=== PATIENT | female | born 1940 | race Caucasian/White ===

== ENCOUNTER 2016-08-18 10:09 | Emergency (ER) | payer OTHER ==
[2016-08-18 10:37] VITALS: BP 157/82; PULSE 71; TEMP 97.7; BMI 40.7
--- NOTE | 2016-08-18 12:54 | PDOC ---
History of Present Illness - General Chief Complaint: Pain, Acute Stated Complaint: LT KNEE PAIN Time Seen by Provider: 08/18/16 12:27 History Source: Patient Exam Limitations: No Limitations - History of Present Illness Initial Comments: 08/18/16 12:57 75 yr female with c/o left knee pain and wound to lower left leg. Pt states no fever no chills no trauma. Pt states she has history of Dm, DVT, high cholesterol, obesity, mostly home bound. the wound is oozing yellow honey crusted discharge. Past History - Past Medical History Allergies/Adverse Reactions: Allergies Allergy/AdvReac Type Severity Reaction Status Date / Time No Known Allergies Allergy Verified 08/18/16 10:37 Home Medications: Ambulatory Orders Calcium 250Mg/Vit-D 125 Units [Oscal 250 mg+D -] 2 each PO BID 10/13/11 Cholecalciferol (Vitamin D3) [Vitamin D3] 1,000 unit PO DAILY 10/13/11 Glimepiride [Amaryl] 2 mg PO BID 10/13/11 Levothyroxine [Synthroid -] 25 mcg PO DAILY 10/13/11 Pioglitazone HCl [Actos] 30 mg PO HS 10/13/11 Pravastatin Sodium [Pravachol -] 10 mg PO HS 10/13/11 Sitagliptin Phosphate [Januvia] 100 mg PO HS 10/13/11 Gabapentin 300 mg PO HS #10 10/17/11 Valsartan [Diovan] 160 mg PO DAILY #10 10/17/11 Aspirin [ASA -] 81 mg PO DAILY 11/15/15 Cephalexin [Keflex] 250 mg PO QID #28 capsule 08/18/16 Mupirocin Ointment [Bactroban] 1 applic TP BID #1 tube 08/18/16 Diabetes: Yes HTN: Yes Hypercholesterolemia: Yes Thyroid Disease: Yes - Surgical History Appendectomy: Yes - Immunization History Immunization Up to Date: Yes - Psycho/Social/Smoking Cessation Hx Suicidal Ideation: No Smoking Status: No Smoking History: Never smoked Have you smoked in the past 12 months: No Number of Cigarettes Smoked Daily: 0 Hx Alcohol Use: No Drug/Substance Use Hx: No Substance Use Type: None Hx Substance Use Treatment: No *Physical Exam - Vital Signs Last Vital Signs Temp Pulse Resp BP Pulse Ox 97.7 F 71 16 157/82 94 L 08/18/16 10:33 08/18/16 10:33 08/18/16 10:33 08/18/16 10:33 08/18/16 10:33 - Physical Exam General Appearance: Yes: Nourished, Appropriately Dressed, Obese HEENT: positive: EOMI, TRAVIS, Normal ENT Inspection, TMs Normal, Pharynx Normal Neck: positive: Supple Respiratory/Chest: positive: Lungs Clear, Normal Breath Sounds Cardiovascular: positive: Regular Rhythm, Regular Rate Gastrointestinal/Abdominal: positive: Normal Bowel Sounds, Soft Extremity: positive: Normal Capillary Refill, Normal Inspection, Tender (medial and laterally left knee, pain with stepping off , getting up from chair ), Swelling, Other (no crepitus no deformity , swelling noted to lateral surface of left knee ). negative: Calf Tenderness Integumentary: positive: Normal Color, Dry, Warm, Other (left lower leg with reddened area with oozing honey crust discharge, no fluctunace non pitting) Neurologic: positive: Fully Oriented, Normal Response, Motor Strength 5/5 ED Treatment Course - RADIOLOGY Radiology Studies Ordered: Category Date Time Status KNEE 3 POS-LEFT [RAD] Stat Radiology 08/18/16 12:44 Ordered DUPLEX VASCUL US-1 LEG [US] Stat Ultrasound 08/18/16 12:53 Ordered Medical Decision Making - Medical Decision Making 08/18/16 14:20 cc: left knee pain for 3 weeks getting owrse pt also has a wound to the left lower leg no fever or chills no streaking up the leg will r/o fx, r/o dvt wound culture obtained and sent will place on bactroban for possible staph / strep and keflex po pt understands to follow with PMD in 2-3 days for follow up care *DC/Admit/Observation/Transfer Diagnosis at time of Disposition: Cellulitis Qualifiers: Site of cellulitis: extremity Site of cellulitis of extremity: lower extremity Laterality: left Qualified Code(s): L03.116 - Cellulitis of left lower limb Strain of knee Qualifiers: Encounter type: initial encounter Laterality: left Qualified Code(s): S86.912A - Strain of unspecified muscle(s) and tendon(s) at lower leg level, left leg, initial encounter - Discharge Dispostion Disposition: HOME Condition at time of disposition: Good - Prescriptions Prescriptions: Mupirocin Ointment [Bactroban] 1 applic TP BID #1 tube Cephalexin [Keflex] 250 mg PO QID #28 capsule - Referrals Referrals: Yuri Alvarez MD [Primary Care Provider] - Dennis Barrera MD [Staff Physician] - - Patient Instructions Additional Instructions: Negative xray and negative duplex study of leg follow with your doctor in 2-3 days for follow up elevate the left leg apply the ointment as directed to the wound and cover with a non stick gauze take the prescribed antibiotics as directed take motrin for pain as needed follow with the orthopedist Bruce Atwood for follow up as well
== END 2016-08-18 14:32 | disposition home or self-care (01) ==
LOC: JERFT 10:09
DX: L03.116 Cellulitis of left lower limb (principal); I10 Essential (primary) hypertension; E11.9 Type 2 diabetes mellitus without complications; Z79.84 Long term (current) use of oral hypoglycemic drugs; E78.00 Pure hypercholesterolemia, unspecified; E03.9 Hypothyroidism, unspecified; E66.01 Morbid (severe) obesity due to excess calories; Z68.41 Body mass index [BMI] 40.0-44.9, adult
CPT/HCPCS: 73562-TC-LT; 87070; 87186; 87205; 93971-TC; 99281-25

== ENCOUNTER 2024-06-12 03:41 | Emergency (ER) | payer OTHER ==
[2024-06-12 03:58] VITALS: BMI 32.8
[2024-06-12 04:54] LABS: BASO % 0.1 % (0-2.0); EOS % 4.5 % (0-4.5); HEMATOCRIT 36.5 % (32.4-45.2); HEMOGLOBIN 12.2 GM/dL (10.7-15.3); LYMPH % 16.3 % (8-40); MCH 30.5 pg (25.7-33.7); MCHC 33.4 g/dl (32.0-36.0); MEAN CELL VOLUME 91.4 fl (80-96); MEAN PLT VOLUME 9.2 fl (7.5-11.1); MONO % 12.3 % (3.8-10.2); NEUT % 66.8 % (42.8-82.8); PLATELET COUNT 140 10^3/uL (134-434); RBC 3.99 M/mm3 (3.60-5.2); RDW 16.4 % (11.6-15.6); WHITE BLOOD COUNT 8.7 K/mm3 (4.0-10.0)
[2024-06-12 05:22] LABS: POTASSIUM 5.2 mmol/L (3.5-5.1)
[2024-06-12 05:24] LABS: CALCIUM 9.9 mg/dL (8.5-10.1)
[2024-06-12 05:25] LABS: ALBUMIN 3.5 g/dl (3.4-5.0); BLOOD UREA NITROGEN 58.2 mg/dL (7-18)
[2024-06-12 05:28] LABS: CREATININE 1.6 mg/dL (0.55-1.3)
[2024-06-12 05:29] LABS: BILIRUBIN,TOTAL 0.5 mg/dL (0.2-1); TOT PROT 7.1 g/dl (6.4-8.2)
[2024-06-12] MEDS: SODIUM CHLORIDE 0.9% 500 ML INFUS.BAG IV ONE (06:28)
[2024-06-12] MEDS ORDERED: ACETAMINOPHEN 500 MG TABLET (FP) ONE (09:17)
[2024-06-12] MEDS: ACETAMINOPHEN 500 MG TABLET (FP) PO ONE (09:22)
[2024-06-12] MEDS: SODIUM CHLORIDE 500 ML IV STA (09:57)
[2024-06-12 10:21] LABS: POTASSIUM 5.1 mmol/L (3.5-5.1)
[2024-06-12 10:22] LABS: BLOOD UREA NITROGEN 53.3 mg/dL (7-18); CALCIUM 9.6 mg/dL (8.5-10.1)
[2024-06-12 10:26] LABS: CREATININE 1.4 mg/dL (0.55-1.3)
[2024-06-12 11:27] VITALS: BP 121/61; PULSE 59; RESP 16; TEMP 97.9
== END 2024-06-12 11:21 | disposition home or self-care (01) ==
LOC: JER 03:41
PROC: 3E0337Z Introduction of Electrolytic and Water Balance Substance into Peripheral Vein, Percutaneous Approach (ICD-10-PCS; principal; 2024-06-12)
DX: E86.0 Dehydration (principal); R60.0 Localized edema; N17.9 Acute kidney failure, unspecified; Z20.822 Contact with and (suspected) exposure to COVID-19; W01.198A Fall on same level from slipping, tripping and stumbling with subsequent striking against other object, initial encounter
CPT/HCPCS: 0241U-QW; 36415; 70450-TC; 71045-TC-FY; 72125-TC; 72170-TC-FY; 80048; 80053; 83735; 85025; 93005; 93010; 99285-25

== ENCOUNTER 2024-11-21 14:52 | Inpatient (IN) | payer OTHER ==
[2024-11-21] MEDS: LACTATED RINGERS SOLUTION 1000 ML INFUS.BAG IV ONE (15:50)
[2024-11-21] MEDS: SODIUM CHLORIDE 0.9% 500 ML INFUS.BAG IV ONE (16:00)
[2024-11-21] MEDS ORDERED: NOREPINEPHRINE BITARTRATE/D5W 8 MG/250 ML BAG IVPB ONE (16:03)
[2024-11-21] MEDS: NOREPINEPHRINE BITARTRATE 8,000 MCG in DEXTROSE 5%-WATER - 242 ML IV STA (16:15)
[2024-11-21 16:53] LABS: BG HCT 28.0 % (32.4-45.2); VENOUS BASE EXCESS -3.4 mmol/L (-2-2); VENOUS O2 SATURATION 92.2 % (70-80); VENOUS PCO2 43.9 mmHg (38-52); VENOUS PH 7.327 (7.310-7.410)
[2024-11-21 17:05] LABS: ABSOLUTE IMMATURE GRANULOCYTES 0.04 x10^3/uL (0.0-0.031); BASOPHILS # 0.01 x10^3/uL (0.01-0.08); EOSINOPHIL % 0.5 % (0.7-5.8); EOSINOPHILS # 0.04 x10^3/uL (0.04-0.36); MCHC 30.2 g/dl (32.2-35.5); MEAN CELL VOLUME 92.6 fl (79.4-94.8); MEAN PLT VOLUME 11.2 fl (9.4-12.3); MONOCYTE # 0.54 x10^3/uL (0.24-0.86); MONOCYTE % 7.0 % (4.7-12.5); RDW 21.3 % (12.5-17.0)
[2024-11-21 17:13] LABS: INR 1.82 (0.83-1.09); PROTHROMBIN TIME (PATIENT) 20.0 SEC (9.7-13.0)
[2024-11-21 17:16] LABS: ACTIVATED PTT 73.0 SECONDS (25.2-36.5)
[2024-11-21 17:37] LABS: CO2 24 mmol/L (21-32); GLUCOSE,RANDOM 101 mg/dL (74-106)
[2024-11-21 17:39] LABS: SGOT/AST 36 U/L (15-37); SGPT/ALT 28 U/L (13-61)
[2024-11-21 17:41] LABS: CREATININE 2.2 mg/dL (0.55-1.3); TOT PROT 5.3 g/dl (6.4-8.2)
[2024-11-21 17:41] LABS: LACTIC ACID 3.5 mmol/L (0.4-2.0)
[2024-11-21 17:42] LABS: ALK PHOS 126 U/L (45-117)
[2024-11-21] MEDS ORDERED: VANCOMYCIN/WATER 1250 MG 1,250 MG/250 ML BAG IVPB ONE (17:43)
[2024-11-21 17:44] LABS: N-TERMINAL BNP 4773.4 pg/ml (5-450)
[2024-11-21] MEDS: PIPERACILLIN/TAZOB 2.25 GM 2.25 GM in DEXTROSE 5%-WATER - 50 ML IVPB ONE (18:00)
[2024-11-21] MEDS: VANCOMYCIN/WATER 1250 MG 1,250 MG/250 ML BAG IVPB ONE (18:00)
[2024-11-21] MEDS: SODIUM CHLORIDE 1,000 ML IV STA (18:41)
[2024-11-21] MEDS: KCL 10 MEQ IVPB 10 MEQ/100 ML INFUS.BAG IVPB SCH (18:45)
[2024-11-21] MEDS ORDERED: MAGNESIUM SULFATE IN WATER 2 GM/50 ML IVPB IVPB ONE (18:52)
[2024-11-21] MEDS ORDERED: KCL 10 MEQ IVPB 10 MEQ/100 ML INFUS.BAG IVPB ONE (18:53)
[2024-11-21] MEDS: MAGNESIUM SULFATE IN WATER 2 GM/50 ML IVPB IVPB ONE (19:26)
[2024-11-21] MEDS ORDERED: PHENYLEPHRINE HCL 10 MG/1 ML SINGLE DOSE VIAL ONE (21:13)
[2024-11-21] MEDS ORDERED: LEVOTHYROXINE SODIUM 100 MCG 5 ML VIAL IVPUSH ONE (21:34)
[2024-11-21] MEDS ORDERED: HEPARIN NA (PORCINE) 5,000 UNITS/ML 1ML VIAL SQ SCH (22:00)
[2024-11-21] MEDS: MUPIROCIN 2% TOPICAL OINTMENT FOR DECOLONIZATION NS SCH (22:50)
[2024-11-21] MEDS: FUROSEMIDE 40 MG/4 ML INJECTABLE VIAL IVPUSH ONE (22:50)
[2024-11-21] MEDS: ATORVASTATIN CA 10 MG TABLET (FP) PO SCH (22:50)
[2024-11-21] MEDS: CHLORHEXIDINE GLUCONATE 4% CLEANSER FOR DECOLONIZATION TP SCH (22:50)
[2024-11-21] MEDS: ACETAMINOPHEN 500 MG TABLET (FP) PO SCH (22:50)
[2024-11-21] MEDS: DABIGATRAN ETEXILATE MESYLATE 75 MG CAPSULE PO SCH (22:50)
[2024-11-21] MEDS: SODIUM CHLORIDE 500 ML IV STA (22:51)
[2024-11-21] MEDS: PHENYLEPHRINE HCL 10 MG/1 ML SINGLE DOSE VIAL IVPB ONE (22:54)
[2024-11-21] MEDS: NOREPINEPHRINE BITARTRATE/D5W 8 MG/250 ML BAG IVPB STA (23:42)
[2024-11-22] MEDS: LACTATED RINGERS SOLUTION 1000 ML INFUS.BAG IV ONE (00:29)
[2024-11-22 00:34] LABS: LACTIC ACID 2.3 mmol/L (0.4-2.0)
[2024-11-22] MEDS: HYDROCORTISONE SOD SUCCINATE 100 MG/2 ML VIAL IVPUSH SCH ×2 (01:05→13:59)
[2024-11-22] MEDS: PIPERACILLIN/TAZOB 2.25 GM 2.25 GM/50 ML BAG IVPB SCH (02:05)
[2024-11-22] MEDS: INSULIN ASPART SLIDING SCALE (NOVOLOG) 1 VIAL SQ SCH (06:19)
[2024-11-22] MEDS: LEVOTHYROXINE NA 75 MCG TABLET (FP) PO SCH (06:20)
[2024-11-22 06:37] LABS: MCHC 30.2 g/dl (32.2-35.5); MEAN CELL VOLUME 90.9 fl (79.4-94.8); MEAN PLT VOLUME 11.3 fl (9.4-12.3); RDW 21.4 % (12.5-17.0)
[2024-11-22 06:56] LABS: CO2 24.0 mmol/L (21-32); GLUCOSE,RANDOM 168.0 mg/dL (74-106)
[2024-11-22 06:58] LABS: CREATININE 2.3 mg/dL (0.55-1.3); SGOT/AST 36.0 U/L (15-37); SGPT/ALT 30.0 U/L (13-61)
[2024-11-22 07:00] LABS: ALK PHOS 134.0 U/L (45-117); TOT PROT 5.9 g/dl (6.4-8.2)
[2024-11-22 07:01] LABS: LACTIC ACID 2.1 mmol/L (0.4-2.0)
[2024-11-22] MEDS: MAGNESIUM SULFATE IN WATER 2 GM/50 ML IVPB IVPB ONE (08:07)
[2024-11-22] MEDS ORDERED: DEXTROSE 50%-WATER 25 GM/50 ML DISP.SYRIN ONE (09:02)
[2024-11-22 09:37] LABS: LACTIC ACID 2.2 mmol/L (0.4-2.0)
[2024-11-22] MEDS: NOREPINEPHRINE BITARTRATE/D5W 8 MG/250 ML BAG IVPB SCH (09:47)
[2024-11-22] MEDS: LACTATED RINGERS SOLUTION 1,000 ML/1,000 ML INFUS.BAG IV SCH (10:17)
[2024-11-22 10:19] LABS: ARTERIAL BLD GAS O2 SATURATION 98.8 % (95-98); ARTERIAL BLOOD GAS BASE EXCESS -5.3 mmol/L (-2-2); ARTERIAL BLOOD GAS PCO2 37.40 mmHg (35-45); ARTERIAL BLOOD GAS PO2 147.0 mmHg (80-100); BG HCT 28.0 % (32.4-45.2); O2 CONTENT 1.36 % vol
[2024-11-22] MEDS: VANCOMYCIN 1 GM PREMIX (F) 1 GM/200 ML BAG IVPB SCH (17:47)
[2024-11-22 20:44] LABS: EPI CELLS >36 /uL (0-25.1); HYALINE CASTS 3 /uL (0-3.1); URINE APPEARANCE TURBID; URINE BACTERIA 378 /uL (0-1359); URINE BILIRUBIN NEGATIVE (NEGATIVE); URINE COLOR YELLOW; URINE GLUCOSE (UA) NEGATIVE (NEGATIVE); URINE KETONE NEGATIVE (NEGATIVE); URINE LEUK ESTERASE 3+ (NEGATIVE); URINE NITRITE NEGATIVE (NEGATIVE); URINE PROTEIN 3+ (NEGATIVE); URINE UROBILINOGEN 0.2 mg/dL (0.2-1.0); URINE WBC 16619 /uL (0-25.8)
[2024-11-22] MEDS: ZINC OXIDE/PETROLATUM,WHITE 1 APPLIC OINT...G. TP SCH (21:33)
[2024-11-23 06:42] LABS: MCHC 30.3 g/dl (32.2-35.5); MEAN CELL VOLUME 90.6 fl (79.4-94.8); MEAN PLT VOLUME 11.0 fl (9.4-12.3); RDW 21.3 % (12.5-17.0)
[2024-11-23 07:04] LABS: ALK PHOS 117.0 U/L (45-117); CO2 23.0 mmol/L (21-32); CREATININE 2.8 mg/dL (0.55-1.3); GLUCOSE,RANDOM 189.0 mg/dL (74-106); SGOT/AST 26.0 U/L (15-37); SGPT/ALT 25.0 U/L (13-61); TOT PROT 5.4 g/dl (6.4-8.2)
[2024-11-23 07:20] LABS: URINE RBC 914.7 /uL (0-23.9); YEAST FEW (NEGATIVE)
[2024-11-23] MEDS ORDERED: APIXABAN 2.5 MG TABLET PO ONE (10:50)
[2024-11-23] MEDS: APIXABAN 2.5 MG TABLET NGT ONE (10:56)
[2024-11-23] MEDS: PIPERACILLIN/TAZOB 2.25 GM 2.25 GM/50 ML BAG IVPB SCH (17:01)
[2024-11-23] MEDS: PIPERACILLIN/TAZOB 2.25 GM 2.25 GM in DEXTROSE 5%-WATER - 50 ML IVPB SCH (17:33)
[2024-11-23] MEDS: DABIGATRAN ETEXILATE MESYLATE 75 MG CAPSULE PO SCH (21:16)
[2024-11-23] MEDS: ACETAMINOPHEN 650 MG/20.3 ML ORAL SOLUTION (CUPS) NGT SCH (21:20)
[2024-11-23] MEDS: HYDROCORTISONE SOD SUCCINATE 100 MG/2 ML VIAL IVPUSH SCH (21:20)
[2024-11-23] MEDS: ATORVASTATIN CA 10 MG TABLET (FP) NGT SCH (21:21)
[2024-11-23] MEDS ORDERED: APIXABAN 2.5 MG TABLET NGT SCH (22:00)
[2024-11-23] MEDS ORDERED: HYDROCORTISONE SOD SUCCINATE 100 MG/2 ML VIAL IVPUSH SCH (22:00)
[2024-11-24] MEDS ORDERED: PIPERACILLIN/TAZOB 2.25 GM 2.25 GM/50 ML BAG IVPB SCH (02:00)
[2024-11-24] MEDS ORDERED: FUROSEMIDE 40 MG/4 ML INJECTABLE VIAL ONE (05:45)
[2024-11-24 06:42] LABS: ABSOLUTE IMMATURE GRANULOCYTES 0.07 x10^3/uL (0.0-0.031); BASOPHILS # 0.01 x10^3/uL (0.01-0.08); EOSINOPHIL % 0.0 % (0.7-5.8); EOSINOPHILS # 0.00 x10^3/uL (0.04-0.36); MCHC 30.4 g/dl (32.2-35.5); MEAN CELL VOLUME 91.1 fl (79.4-94.8); MONOCYTE # 0.48 x10^3/uL (0.24-0.86); MONOCYTE % 5.0 % (4.7-12.5); RDW 21.6 % (12.5-17.0)
[2024-11-24] MEDS: LEVOTHYROXINE NA 75 MCG TABLET (FP) PO SCH (06:43)
[2024-11-24] MEDS ORDERED: LEVOTHYROXINE NA 75 MCG TABLET (FP) NGT SCH (07:00)
[2024-11-24 07:05] LABS: CO2 25.0 mmol/L (21-32); GLUCOSE,RANDOM 189.0 mg/dL (74-106)
[2024-11-24 07:07] LABS: SGPT/ALT 25.0 U/L (13-61)
[2024-11-24 07:08] LABS: CREATININE 3.0 mg/dL (0.55-1.3); SGOT/AST 19.0 U/L (15-37)
[2024-11-24 07:09] LABS: TOT PROT 5.6 g/dl (6.4-8.2)
[2024-11-24 07:10] LABS: ALK PHOS 106.0 U/L (45-117)
[2024-11-24] MEDS: POTASSIUM CHLORIDE ORAL LIQUID 20 MEQ/15 ML PO ONE (08:33)
[2024-11-24] MEDS: SODIUM CHLORIDE 1,000 ML IV STA (17:39)
[2024-11-24] MEDS ORDERED: VANCOMYCIN 1 GM PREMIX (F) 1 GM/200 ML BAG IVPB SCH (18:00)
[2024-11-24 19:48] LABS: ABSOLUTE IMMATURE GRANULOCYTES 0.05 x10^3/uL (0.0-0.031)
[2024-11-24 19:49] LABS: BASOPHILS # 0.00 x10^3/uL (0.01-0.08); EOSINOPHIL % 0.0 % (0.7-5.8); EOSINOPHILS # 0.00 x10^3/uL (0.04-0.36); IMMATURE PLATELET FRACTION # 8.00 x10^3/uL; MCHC 30.2 g/dl (32.2-35.5); MEAN CELL VOLUME 90.6 fl (79.4-94.8); MEAN PLT VOLUME 11.2 fl (9.4-12.3); MONOCYTE # 0.57 x10^3/uL (0.24-0.86); MONOCYTE % 5.6 % (4.7-12.5); RDW 21.5 % (12.5-17.0)
[2024-11-24 20:08] LABS: CO2 21.0 mmol/L (21-32); GLUCOSE,RANDOM 179.0 mg/dL (74-106)
[2024-11-24 20:11] LABS: CREATININE 3.1 mg/dL (0.55-1.3); SGOT/AST 24.0 U/L (15-37); SGPT/ALT 25.0 U/L (13-61)
[2024-11-24 20:13] LABS: TOT PROT 5.4 g/dl (6.4-8.2)
[2024-11-24 20:14] LABS: ALK PHOS 101.0 U/L (45-117)
[2024-11-24 20:29] LABS: LACTIC ACID 2.6 mmol/L (0.4-2.0)
[2024-11-24 22:36] LABS: LACTIC ACID 2.2 mmol/L (0.4-2.0)
[2024-11-25 06:26] LABS: ABSOLUTE IMMATURE GRANULOCYTES 0.04 x10^3/uL (0.0-0.031); BASOPHILS # 0.01 x10^3/uL (0.01-0.08); EOSINOPHIL % 0.7 % (0.7-5.8); EOSINOPHILS # 0.07 x10^3/uL (0.04-0.36); MCHC 30.9 g/dl (32.2-35.5); MEAN CELL VOLUME 89.8 fl (79.4-94.8); MEAN PLT VOLUME 11.4 fl (9.4-12.3); MONOCYTE # 0.91 x10^3/uL (0.24-0.86); MONOCYTE % 8.9 % (4.7-12.5); RDW 21.8 % (12.5-17.0)
[2024-11-25 07:21] LABS: ALK PHOS 104.0 U/L (45-117); CO2 22.0 mmol/L (21-32); CREATININE 3.3 mg/dL (0.55-1.3); GLUCOSE,RANDOM 124.0 mg/dL (74-106); SGOT/AST 20.0 U/L (15-37); SGPT/ALT 24.0 U/L (13-61); TOT PROT 5.4 g/dl (6.4-8.2)
[2024-11-25] MEDS: HYDROCORTISONE SOD SUCCINATE 100 MG/2 ML VIAL IVPUSH SCH (11:45)
[2024-11-25] MEDS ORDERED: POTASSIUM CHLORIDE 10 MEQ in DEXTROSE 5%-WATER - 1,000 ML IV SCH (16:00)
[2024-11-25] MEDS: POTASSIUM CHLORIDE 10 MEQ in AMINO ACIDS 4.25%/D5W 1,000 ML IV SCH (17:33)
[2024-11-25] MEDS: AMINO ACIDS 4.25%/D5W 1,000 ML IV SCH (18:17)
[2024-11-26 08:17] LABS: MCHC 30.2 g/dl (32.2-35.5)
[2024-11-26 08:19] LABS: IMMATURE PLATELET FRACTION # 8.80 x10^3/uL; MEAN CELL VOLUME 90.6 fl (79.4-94.8); MEAN PLT VOLUME 11.1 fl (9.4-12.3); RDW 21.8 % (12.5-17.0)
[2024-11-26 09:16] LABS: CO2 23.0 mmol/L (21-32); GLUCOSE,RANDOM 195.0 mg/dL (74-106)
[2024-11-26 09:19] LABS: CREATININE 3.2 mg/dL (0.55-1.3); SGOT/AST 20.0 U/L (15-37); SGPT/ALT 23.0 U/L (13-61)
[2024-11-26 09:20] LABS: TOT PROT 5.4 g/dl (6.4-8.2)
[2024-11-26 09:21] LABS: ALK PHOS 99.0 U/L (45-117)
[2024-11-26] MEDS: MIDODRINE HCL 5 MG TABLET PO SCH (10:24)
[2024-11-26] MEDS: SODIUM CHLORIDE 1,000 ML IV SCH (16:32)
[2024-11-27 07:39] LABS: EOSINOPHIL % 1.8 % (0.7-5.8); EOSINOPHILS # 0.17 x10^3/uL (0.04-0.36)
[2024-11-27 07:41] LABS: ABSOLUTE IMMATURE GRANULOCYTES 0.40 x10^3/uL (0.0-0.031); BASOPHILS # 0.02 x10^3/uL (0.01-0.08); IMMATURE PLATELET FRACTION # 8.20 x10^3/uL; MCHC 30.8 g/dl (32.2-35.5); MEAN CELL VOLUME 89.1 fl (79.4-94.8); MEAN PLT VOLUME 11.2 fl (9.4-12.3); MONOCYTE # 1.17 x10^3/uL (0.24-0.86); MONOCYTE % 12.5 % (4.7-12.5); RDW 21.6 % (12.5-17.0)
[2024-11-27 07:58] LABS: CO2 22.0 mmol/L (21-32); GLUCOSE,RANDOM 167.0 mg/dL (74-106)
[2024-11-27 08:01] LABS: CREATININE 2.7 mg/dL (0.55-1.3); SGOT/AST 16.0 U/L (15-37); SGPT/ALT 19.0 U/L (13-61)
[2024-11-27 08:03] LABS: TOT PROT 5.5 g/dl (6.4-8.2)
[2024-11-27 08:04] LABS: ALK PHOS 94.0 U/L (45-117)
[2024-11-27] MEDS: POTASSIUM CHLORIDE ORAL LIQUID 20 MEQ/15 ML PO ONE (09:45)
[2024-11-27] MEDS: MAGNESIUM 1GM/D5W - 1 GM/100 ML IVPB IVPB ONE (09:45)
[2024-11-27] MEDS: SODIUM CHLORIDE 1,000 ML IV SCH (20:15)
[2024-11-27] MEDS: ACETAMINOPHEN 650 MG/20.3 ML ORAL SOLUTION (CUPS) NGT SCH (21:31)
[2024-11-27] MEDS: DABIGATRAN ETEXILATE MESYLATE 75 MG CAPSULE PO SCH (21:32)
[2024-11-27] MEDS: ATORVASTATIN CA 10 MG TABLET (FP) NGT SCH (21:32)
[2024-11-27] MEDS: ZINC OXIDE/PETROLATUM,WHITE 1 APPLIC OINT...G. TP SCH (21:33)
[2024-11-27] MEDS: INSULIN ASPART SLIDING SCALE (NOVOLOG) 1 VIAL SQ SCH (23:35)
[2024-11-28] MEDS: PIPERACILLIN/TAZOB 2.25 GM 2.25 GM in DEXTROSE 5%-WATER - 50 ML IVPB SCH (01:17)
[2024-11-28] MEDS: LEVOTHYROXINE NA 75 MCG TABLET (FP) PO SCH (06:07)
[2024-11-28] MEDS ORDERED: INSULIN ASPART SLIDING SCALE (NOVOLOG) 1 VIAL SQ ONE (06:23)
[2024-11-28] MEDS: POTASSIUM CHLORIDE 10 MEQ in AMINO ACIDS 4.25%/D5W 1,000 ML IV SCH ×2 (06:55→14:27)
[2024-11-28 08:32] LABS: BASOPHILS # 0.02 x10^3/uL (0.01-0.08); EOSINOPHIL % 3.5 % (0.7-5.8)
[2024-11-28 08:34] LABS: ABSOLUTE IMMATURE GRANULOCYTES 0.18 x10^3/uL (0.0-0.031); EOSINOPHILS # 0.32 x10^3/uL (0.04-0.36); IMMATURE PLATELET FRACTION # 9.30 x10^3/uL; MCHC 30.2 g/dl (32.2-35.5); MEAN CELL VOLUME 89.5 fl (79.4-94.8); MEAN PLT VOLUME 11.1 fl (9.4-12.3); MONOCYTE # 0.98 x10^3/uL (0.24-0.86); MONOCYTE % 10.7 % (4.7-12.5); RDW 21.5 % (12.5-17.0)
[2024-11-28] MEDS: MIDODRINE HCL 5 MG TABLET PO SCH (10:10)
[2024-11-28 10:51] LABS: ALK PHOS 101.0 U/L (45-117); CO2 21.0 mmol/L (21-32); CREATININE 2.4 mg/dL (0.55-1.3); GLUCOSE,RANDOM 174.0 mg/dL (74-106); SGOT/AST 17.0 U/L (15-37); SGPT/ALT 20.0 U/L (13-61); TOT PROT 5.7 g/dl (6.4-8.2)
[2024-11-28] MEDS: MAGNESIUM 2GM/50ML STERILE WATER IVPB IVPB ONE (14:27)
[2024-11-28] MEDS: KCL 10 MEQ IVPB 10 MEQ/100 ML INFUS.BAG IVPB SCH ×2 (14:35→16:02)
[2024-11-28 22:32] VITALS: BMI 36.6
[2024-11-29] MEDS: ASCORBIC ACID 500 MG TABLET (FP) PO SCH (10:46)
[2024-11-29] MEDS: MULTIVITAMINS (DAILY MVI) TABLET (FP) PO SCH (10:46)
[2024-11-30 10:16] LABS: GLUCOSE,RANDOM 180.0 mg/dL (74-106)
[2024-11-30 10:21] LABS: CO2 21.0 mmol/L (21-32)
[2024-11-30 10:51] LABS: ALK PHOS 107.0 U/L (45-117); CREATININE 1.8 mg/dL (0.55-1.3); SGOT/AST 17.0 U/L (15-37); SGPT/ALT 20.0 U/L (13-61); TOT PROT 5.9 g/dl (6.4-8.2)
[2024-11-30] MEDS: POTASSIUM CHLORIDE ORAL LIQUID 20 MEQ/15 ML PO ONE (11:35)
[2024-11-30 11:52] VITALS: BP 103/92; PULSE 71; RESP 16; TEMP 97.9
== END 2024-11-30 12:24 | DRG 871 ==
LOC: JER 14:52 → JERBED 17:29 → JICU 19:21 → J4W 11-24 16:13 → J6S 11-27 17:52
PROVIDERS: ADMIT Internal Medicine Pulmonary Disease; ATTEND Family Medicine
PROC: 4A133B1 Monitoring of Arterial Pressure, Peripheral, Percutaneous Approach (ICD-10-PCS; principal; 2024-11-21)
PROC: 4A133J1 Monitoring of Arterial Pulse, Peripheral, Percutaneous Approach (ICD-10-PCS; 2024-11-21)
PROC: 05HM33Z Insertion of Infusion Device into Right Internal Jugular Vein, Percutaneous Approach (ICD-10-PCS; 2024-11-21)
PROC: B543ZZA Ultrasonography of Right Jugular Veins, Guidance (ICD-10-PCS; 2024-11-21)
DX: A41.9 Sepsis, unspecified organism (principal); I50.23 Acute on chronic systolic (congestive) heart failure; R65.21 Severe sepsis with septic shock; J69.0 Pneumonitis due to inhalation of food and vomit; I42.9 Cardiomyopathy, unspecified; N39.0 Urinary tract infection, site not specified; J98.11 Atelectasis; I13.0 Hypertensive heart and chronic kidney disease with heart failure and stage 1 through stage 4 chronic kidney disease, or unspecified chronic kidney disease; E27.40 Unspecified adrenocortical insufficiency; N17.9 Acute kidney failure, unspecified; I48.91 Unspecified atrial fibrillation; E87.6 Hypokalemia; E83.42 Hypomagnesemia; E11.9 Type 2 diabetes mellitus without complications; N18.9 Chronic kidney disease, unspecified; E03.9 Hypothyroidism, unspecified; T68.XXXA Hypothermia, initial encounter; X58.XXXA Exposure to other specified factors, initial encounter; Y93.9 Activity, unspecified; Y92.89 Other specified places as the place of occurrence of the external cause; Y99.9 Unspecified external cause status
CPT/HCPCS: 0241U-QW; 36415; 36600; 70450-TC; 71045-TC-FY; 76775-TC; 80053; 81003; 82024; 82533; 82550; 82803; 82962; 83605; 83735; 83880; 84100; 84439; 84443; 84484; 85025; 85027; 85610; 85730; 86850; 86900; 86901; 87040; 87077; 87086; 87481; 87635; 87899; 93005; 93010; 93306-TC; 99291; J3490

== ENCOUNTER 2024-12-06 02:23 | Inpatient (IN) | payer OTHER ==
[2024-12-06 02:59] LABS: MCHC 29.1 g/dl (32.2-35.5); MEAN CELL VOLUME 93.1 fl (79.4-94.8); MEAN PLT VOLUME 11.0 fl (9.4-12.3); RDW 24.1 % (12.5-17.0)
[2024-12-06 03:00] LABS: BG HCT 26.0 % (32.4-45.2); VENOUS BASE EXCESS -3.4 mmol/L (-2-2); VENOUS O2 SATURATION 62.5 % (70-80); VENOUS PCO2 65.7 mmHg (38-52)
[2024-12-06 03:11] LABS: INR 2.54 (0.83-1.09); PROTHROMBIN TIME (PATIENT) 27.9 SEC (9.7-13.0)
[2024-12-06 03:46] LABS: VENOUS PH 7.199 (7.310-7.410)
[2024-12-06 03:55] LABS: CO2 23.0 mmol/L (21-32); GLUCOSE,RANDOM 128.0 mg/dL (74-106)
[2024-12-06 03:58] LABS: CREATININE 1.8 mg/dL (0.55-1.3); SGOT/AST 37.0 U/L (15-37); SGPT/ALT 33.0 U/L (13-61)
[2024-12-06 04:00] LABS: TOT PROT 6.0 g/dl (6.4-8.2)
[2024-12-06] MEDS ORDERED: PIPERACILLIN/TAZOB 4.5 GM 4.5 GM/100 ML BAG IVPB ONE (04:00)
[2024-12-06] MEDS: PIPERACILLIN/TAZOB 4.5 GM 4.5 GM in DEXTROSE 5%-WATER 100 ML IVPB ONE (04:08)
[2024-12-06] MEDS: SODIUM CHLORIDE 0.9% 500 ML INFUS.BAG IV ONE ×2 (04:08→06:46)
[2024-12-06 04:15] LABS: ALK PHOS 138.0 U/L (45-117)
[2024-12-06 04:19] LABS: ACTIVATED PTT 142.8 SECONDS (25.2-36.5)
[2024-12-06 05:04] LABS: URINE APPEARANCE TURBID; URINE BILIRUBIN LARGE (NEGATIVE); URINE COLOR PINK; URINE GLUCOSE (UA) NEGATIVE (NEGATIVE); URINE KETONE NEGATIVE (NEGATIVE)
[2024-12-06 05:05] LABS: URINE LEUK ESTERASE LARGE (NEGATIVE); URINE NITRITE POSITIVE (NEGATIVE); URINE PROTEIN 300 (NEGATIVE); URINE RBC 239.3 /uL (0-23.9); URINE UROBILINOGEN 0.2 mg/dL (0.2-1.0)
[2024-12-06 05:06] LABS: EPI CELLS 165.6 /uL (0-25.1); HYALINE CASTS 13.56 /uL (0-3.1); URINE BACTERIA 0.0 /uL (0-1359); URINE WBC 36.3 /uL (0-25.8)
[2024-12-06] MEDS: VANCOMYCIN HCL 1,500 MG in DEXTROSE 5%-WATER - 500 ML IVPB ONE (05:39)
[2024-12-06 06:19] LABS: URINE CRYSTALS NONE SEEN /hpf
[2024-12-06 07:19] LABS: HIV INTERPRETATION NEGATIVE (NEGATIVE)
[2024-12-06] MEDS ORDERED: HYDROCORTISONE SOD SUCCINATE 100 MG/2 ML VIAL ONE (07:42)
[2024-12-06] MEDS: HYDROCORTISONE SOD SUCCINATE 100 MG/2 ML VIAL IVPUSH ONE (07:49)
[2024-12-06] MEDS ORDERED: NOREPINEPHRINE BITARTRATE 16,000 MCG in SODIUM CHLORIDE 484 ML IV SCH (09:45)
[2024-12-06] MEDS: NOREPINEPHRINE BITARTRATE/D5W 8 MG/250 ML BAG IVPB SCH (10:25)
[2024-12-06 12:38] LABS: ARTERIAL BLD GAS O2 SATURATION 98.8 % (95-98); ARTERIAL BLOOD GAS BASE EXCESS -7.4 mmol/L (-2-2); ARTERIAL BLOOD GAS PCO2 55.90 mmHg (35-45); ARTERIAL BLOOD GAS PO2 176.5 mmHg (80-100); BG HCT 26.0 % (32.4-45.2)
[2024-12-06 12:41] LABS: ALLENS TEST POSITIVE
[2024-12-06] MEDS ORDERED: PIPERACILLIN/TAZOB 3.375 GM 3.375 GM in DEXTROSE 5%-WATER - 50 ML IVPB SCH ×2 (13:15→14:00)
[2024-12-06] MEDS: LACTATED RINGERS SOLUTION 1,000 ML/1,000 ML INFUS.BAG IV SCH (13:27)
[2024-12-06] MEDS: PIPERACILLIN/TAZOB 3.375 GM 3.375 GM in DEXTROSE 5%-WATER - 50 ML IVPB SCH (14:24)
[2024-12-06] MEDS: MUPIROCIN 2% TOPICAL OINTMENT FOR DECOLONIZATION NS SCH (15:53)
[2024-12-06 16:15] LABS: ARTERIAL BLD GAS O2 SATURATION 98.3 % (95-98); ARTERIAL BLOOD GAS BASE EXCESS -8.9 mmol/L (-2-2); ARTERIAL BLOOD GAS PCO2 46.10 mmHg (35-45); ARTERIAL BLOOD GAS PO2 142.8 mmHg (80-100); BG HCT 25.0 % (32.4-45.2)
[2024-12-06 16:16] LABS: ALLENS TEST POSITIVE
[2024-12-06 16:17] LABS: VENT MODE IPAP 14; VENT RATE 14
[2024-12-06 18:22] LABS: MCHC 28.8 g/dl (32.2-35.5); MEAN CELL VOLUME 94.5 fl (79.4-94.8); MEAN PLT VOLUME 11.6 fl (9.4-12.3); RDW 24.6 % (12.5-17.0)
[2024-12-06 18:40] LABS: CO2 23.0 mmol/L (21-32); GLUCOSE,RANDOM 178.0 mg/dL (74-106)
[2024-12-06 18:43] LABS: CREATININE 1.9 mg/dL (0.55-1.3); SGPT/ALT 31.0 U/L (13-61)
[2024-12-06 18:45] LABS: SGOT/AST 29.0 U/L (15-37); TOT PROT 6.4 g/dl (6.4-8.2)
[2024-12-06 18:46] LABS: ALK PHOS 128.0 U/L (45-117)
[2024-12-06] MEDS: MAGNESIUM 2GM/50ML STERILE WATER IVPB IVPB ONE (19:00)
[2024-12-06] MEDS: FUROSEMIDE 40 MG/4 ML INJECTABLE VIAL IVPUSH ONE ×2 (21:33→23:23)
[2024-12-06] MEDS: PIPERACILLIN/TAZOB 2.25 GM 2.25 GM in DEXTROSE 5%-WATER - 50 ML IVPB SCH (21:33)
[2024-12-06 22:18] LABS: ARTERIAL BLD GAS O2 SATURATION 98.6 % (95-98); ARTERIAL BLOOD GAS BASE EXCESS -8.9 mmol/L (-2-2); ARTERIAL BLOOD GAS PCO2 45.40 mmHg (35-45); ARTERIAL BLOOD GAS PO2 154.2 mmHg (80-100); BG HCT 25.0 % (32.4-45.2)
[2024-12-06] MEDS: CHLORHEXIDINE GLUCONATE 4% CLEANSER FOR DECOLONIZATION TP SCH (23:19)
[2024-12-07 06:25] LABS: ARTERIAL BLD GAS O2 SATURATION 99.0 % (95-98); ARTERIAL BLOOD GAS BASE EXCESS -6.9 mmol/L (-2-2); ARTERIAL BLOOD GAS PCO2 50.70 mmHg (35-45); ARTERIAL BLOOD GAS PO2 188.9 mmHg (80-100); BG HCT 31.0 % (32.4-45.2); O2 CONTENT 1.49 % vol
[2024-12-07 06:48] LABS: ABSOLUTE IMMATURE GRANULOCYTES 0.13 x10^3/uL (0.0-0.031); BASOPHILS # 0.03 x10^3/uL (0.01-0.08); EOSINOPHIL % 0.2 % (0.7-5.8); EOSINOPHILS # 0.03 x10^3/uL (0.04-0.36); MCHC 29.2 g/dl (32.2-35.5); MEAN CELL VOLUME 93.1 fl (79.4-94.8); MEAN PLT VOLUME 11.5 fl (9.4-12.3); MONOCYTE # 1.35 x10^3/uL (0.24-0.86); MONOCYTE % 10.6 % (4.7-12.5); RDW 24.1 % (12.5-17.0)
[2024-12-07 08:32] LABS: ALK PHOS 127.0 U/L (45-117); CO2 19.0 mmol/L (21-32); CREATININE 1.9 mg/dL (0.55-1.3); GLUCOSE,RANDOM 204.0 mg/dL (74-106); SGOT/AST 28.0 U/L (15-37); SGPT/ALT 31.0 U/L (13-61); TOT PROT 5.8 g/dl (6.4-8.2)
[2024-12-07 12:20] LABS: ARTERIAL BLD GAS O2 SATURATION 98.8 % (95-98); ARTERIAL BLOOD GAS BASE EXCESS -3.8 mmol/L (-2-2); ARTERIAL BLOOD GAS PCO2 53.20 mmHg (35-45); ARTERIAL BLOOD GAS PO2 165.1 mmHg (80-100); BG HCT 20.0 % (32.4-45.2); O2 CONTENT 0.97 % vol
[2024-12-07 12:23] LABS: VENT MODE S/T; VENT RATE 20
[2024-12-07 18:13] LABS: ARTERIAL BLD GAS O2 SATURATION 98.6 % (95-98); ARTERIAL BLOOD GAS BASE EXCESS -6.3 mmol/L (-2-2); ARTERIAL BLOOD GAS PCO2 44.90 mmHg (35-45); ARTERIAL BLOOD GAS PO2 148.4 mmHg (80-100); BG HCT 34.0 % (32.4-45.2); O2 CONTENT 1.61 % vol
[2024-12-07] MEDS: HEPARIN NA (PORCINE) 5,000 UNITS/ML 1ML VIAL SQ SCH (22:02)
[2024-12-08 07:19] LABS: ARTERIAL BLD GAS O2 SATURATION 98.8 % (95-98); ARTERIAL BLOOD GAS BASE EXCESS -3.8 mmol/L (-2-2); ARTERIAL BLOOD GAS PCO2 44.40 mmHg (35-45); ARTERIAL BLOOD GAS PO2 156.0 mmHg (80-100); BG HCT 22.0 % (32.4-45.2); O2 CONTENT 1.09 % vol
[2024-12-08 07:37] LABS: ABSOLUTE IMMATURE GRANULOCYTES 0.06 x10^3/uL (0.0-0.031); EOSINOPHILS # 0.09 x10^3/uL (0.04-0.36)
[2024-12-08 07:38] LABS: BASOPHILS # 0.04 x10^3/uL (0.01-0.08); EOSINOPHIL % 0.8 % (0.7-5.8); IMMATURE PLATELET FRACTION # 4.70 x10^3/uL; MCHC 29.3 g/dl (32.2-35.5); MEAN CELL VOLUME 91.1 fl (79.4-94.8); MEAN PLT VOLUME 11.3 fl (9.4-12.3); MONOCYTE # 0.91 x10^3/uL (0.24-0.86); MONOCYTE % 8.4 % (4.7-12.5); RDW 23.9 % (12.5-17.0)
[2024-12-08 08:56] LABS: CO2 23.0 mmol/L (21-32); GLUCOSE,RANDOM 188.0 mg/dL (74-106)
[2024-12-08 08:59] LABS: ALK PHOS 111.0 U/L (45-117); CREATININE 2.0 mg/dL (0.55-1.3); SGOT/AST 19.0 U/L (15-37); SGPT/ALT 24.0 U/L (13-61); TOT PROT 5.4 g/dl (6.4-8.2)
[2024-12-08 10:23] LABS: ARTERIAL BLD GAS O2 SATURATION 98.7 % (95-98); ARTERIAL BLOOD GAS BASE EXCESS -5.6 mmol/L (-2-2); ARTERIAL BLOOD GAS PCO2 44.60 mmHg (35-45); ARTERIAL BLOOD GAS PO2 148.6 mmHg (80-100); BG HCT 22.0 % (32.4-45.2)
[2024-12-08 10:25] LABS: VENT MODE S/T; VENT RATE 20
[2024-12-08] MEDS: INSULIN ASPART SLIDING SCALE (NOVOLOG) 1 VIAL SQ SCH (19:13)
[2024-12-08 19:33] LABS: IMMATURE PLATELET FRACTION # 4.60 x10^3/uL; MCHC 31.0 g/dl (32.2-35.5); MEAN CELL VOLUME 90.0 fl (79.4-94.8); MEAN PLT VOLUME 10.4 fl (9.4-12.3); RDW 21.7 % (12.5-17.0)
[2024-12-09 06:24] LABS: ARTERIAL BLD GAS O2 SATURATION 98.6 % (95-98); ARTERIAL BLOOD GAS BASE EXCESS -2.3 mmol/L (-2-2); ARTERIAL BLOOD GAS PCO2 42.50 mmHg (35-45); ARTERIAL BLOOD GAS PO2 133.9 mmHg (80-100); BG HCT 30.0 % (32.4-45.2)
[2024-12-09 06:40] LABS: ABSOLUTE IMMATURE GRANULOCYTES 0.04 x10^3/uL (0.0-0.031); BASOPHILS # 0.02 x10^3/uL (0.01-0.08); EOSINOPHIL % 1.3 % (0.7-5.8); EOSINOPHILS # 0.11 x10^3/uL (0.04-0.36); MCHC 31.0 g/dl (32.2-35.5); MEAN CELL VOLUME 89.5 fl (79.4-94.8); MEAN PLT VOLUME 11.1 fl (9.4-12.3); MONOCYTE # 0.49 x10^3/uL (0.24-0.86); MONOCYTE % 5.7 % (4.7-12.5); RDW 22.2 % (12.5-17.0)
[2024-12-09 06:44] LABS: ALLENS TEST POSITIVE; VENT MODE ST; VENT RATE 20
[2024-12-09 07:36] LABS: CO2 25.0 mmol/L (21-32); GLUCOSE,RANDOM 145.0 mg/dL (74-106)
[2024-12-09 07:38] LABS: CREATININE 2.0 mg/dL (0.55-1.3); SGOT/AST 16.0 U/L (15-37); SGPT/ALT 20.0 U/L (13-61); TOT PROT 5.0 g/dl (6.4-8.2)
[2024-12-09 07:43] LABS: ALK PHOS 99.0 U/L (45-117)
[2024-12-09] MEDS ORDERED: LACTATED RINGERS SOLUTION 1,000 ML/1,000 ML INFUS.BAG IV SCH (08:15)
[2024-12-09] MEDS: DEXTROSE 5%-WATER - 1,000 ML IV SCH (08:54)
[2024-12-09] MEDS: KCL 10 MEQ IVPB 10 MEQ/100 ML INFUS.BAG IVPB SCH (08:55)
[2024-12-09] MEDS: AMINO ACIDS 4.25%/D5W 1,000 ML IV SCH (15:50)
[2024-12-10] MEDS ORDERED: MIDAZOLAM HCL 2 MG/2 ML SINGLE DOSE VIAL IVPUSH PRN (00:03)
[2024-12-10] MEDS: ACETAMINOPHEN 1000 MG/100 ML BAG IVPB ONE (01:05)
[2024-12-10 07:09] LABS: ABSOLUTE IMMATURE GRANULOCYTES 0.03 x10^3/uL (0.0-0.031); BASOPHILS # 0.02 x10^3/uL (0.01-0.08); EOSINOPHIL % 2.9 % (0.7-5.8); EOSINOPHILS # 0.21 x10^3/uL (0.04-0.36); MCHC 30.4 g/dl (32.2-35.5); MEAN CELL VOLUME 90.6 fl (79.4-94.8); MEAN PLT VOLUME 12.0 fl (9.4-12.3); MONOCYTE # 0.64 x10^3/uL (0.24-0.86); MONOCYTE % 8.8 % (4.7-12.5); RDW 21.9 % (12.5-17.0)
[2024-12-10 08:15] LABS: CO2 24.0 mmol/L (21-32); GLUCOSE,RANDOM 179.0 mg/dL (74-106)
[2024-12-10 08:21] LABS: ALK PHOS 92.0 U/L (45-117); CREATININE 1.9 mg/dL (0.55-1.3); SGOT/AST 14.0 U/L (15-37); SGPT/ALT 18.0 U/L (13-61); TOT PROT 4.9 g/dl (6.4-8.2)
[2024-12-10] MEDS: MAGNESIUM SULFATE IN WATER 2 GM/50 ML IVPB IVPB ONE (09:33)
[2024-12-10] MEDS: KCL 20 MEQ PREMIX BAG 20 MEQ/100 ML INFUS.BAG IVPB SCH (10:31)
[2024-12-11 06:43] LABS: MEAN CELL VOLUME 89.4 fl (79.4-94.8); RDW 21.3 % (12.5-17.0)
[2024-12-11 06:45] LABS: IMMATURE PLATELET FRACTION # 4.80 x10^3/uL; MCHC 31.2 g/dl (32.2-35.5); MEAN PLT VOLUME 11.1 fl (9.4-12.3)
[2024-12-11 07:23] LABS: CO2 21 mmol/L (21-32)
[2024-12-11 07:26] LABS: CREATININE 1.8 mg/dL (0.55-1.3); SGOT/AST 15 U/L (15-37); SGPT/ALT 12 U/L (13-61)
[2024-12-11 07:28] LABS: TOT PROT 4.1 g/dl (6.4-8.2)
[2024-12-11 07:29] LABS: ALK PHOS 71 U/L (45-117)
[2024-12-11 07:54] LABS: GLUCOSE,RANDOM > 500 mg/dL (74-106)
[2024-12-11 08:34] LABS: MEAN PLT VOLUME 10.6 fl (9.4-12.3)
[2024-12-11 08:36] LABS: IMMATURE PLATELET FRACTION # 3.90 x10^3/uL; MCHC 31.4 g/dl (32.2-35.5); MEAN CELL VOLUME 89.4 fl (79.4-94.8); RDW 21.3 % (12.5-17.0)
[2024-12-11 09:33] LABS: GLUCOSE,RANDOM 222.0 mg/dL (74-106)
[2024-12-11 09:34] LABS: CO2 24.0 mmol/L (21-32)
[2024-12-11 09:36] LABS: CREATININE 1.9 mg/dL (0.55-1.3)
[2024-12-11 09:37] LABS: SGOT/AST 17.0 U/L (15-37); SGPT/ALT 14.0 U/L (13-61)
[2024-12-11 09:38] LABS: TOT PROT 4.5 g/dl (6.4-8.2)
[2024-12-11 09:39] LABS: ALK PHOS 87.0 U/L (45-117)
[2024-12-11] MEDS: MAGNESIUM SULFATE IN WATER 2 GM/50 ML IVPB IVPB ONE (11:00)
[2024-12-11] MEDS: KCL 10 MEQ IVPB 10 MEQ/100 ML INFUS.BAG IVPB SCH (11:55)
[2024-12-11] MEDS: PANTOPRAZOLE SODIUM 40 MG VIAL IVPUSH SCH (12:58)
[2024-12-11] MEDS: PHYTONADIONE 10 MG/1 ML AMP IVPB ONE (13:09)
[2024-12-11 13:20] LABS: INR 1.72 (0.83-1.09); PROTHROMBIN TIME (PATIENT) 18.9 SEC (9.7-13.0)
[2024-12-11 13:42] VITALS: BMI 36.4
[2024-12-11 16:32] LABS: BASOPHILS # 0.01 x10^3/uL (0.01-0.08)
[2024-12-11 16:34] LABS: ABSOLUTE IMMATURE GRANULOCYTES 0.07 x10^3/uL (0.0-0.031); EOSINOPHIL % 2.9 % (0.7-5.8); EOSINOPHILS # 0.22 x10^3/uL (0.04-0.36); IMMATURE PLATELET FRACTION # 3.80 x10^3/uL; MCHC 31.7 g/dl (32.2-35.5); MEAN CELL VOLUME 90.8 fl (79.4-94.8); MEAN PLT VOLUME 11.3 fl (9.4-12.3); MONOCYTE # 0.55 x10^3/uL (0.24-0.86); MONOCYTE % 7.2 % (4.7-12.5); RDW 20.2 % (12.5-17.0)
[2024-12-11 17:16] LABS: CO2 20.0 mmol/L (21-32); CREATININE 1.7 mg/dL (0.55-1.3); GLUCOSE,RANDOM 216.0 mg/dL (74-106)
[2024-12-11] MEDS: MAGNESIUM SULF 50% (8.12 MEQ/2 ML-1 GM VIAL) IVPB ONE (17:44)
[2024-12-11] MEDS: SODIUM PHOSPHATE - 15 MM in DEXTROSE 5%-WATER - 250 ML IVPB ONE (20:30)
[2024-12-11 21:24] LABS: ABSOLUTE IMMATURE GRANULOCYTES 0.06 x10^3/uL (0.0-0.031); MEAN CELL VOLUME 89.9 fl (79.4-94.8)
[2024-12-11 21:25] LABS: BASOPHILS # 0.02 x10^3/uL (0.01-0.08); EOSINOPHIL % 2.8 % (0.7-5.8); EOSINOPHILS # 0.22 x10^3/uL (0.04-0.36); IMMATURE PLATELET FRACTION # 4.10 x10^3/uL; MCHC 32.0 g/dl (32.2-35.5); MEAN PLT VOLUME 10.2 fl (9.4-12.3); MONOCYTE # 0.55 x10^3/uL (0.24-0.86); MONOCYTE % 7.1 % (4.7-12.5); RDW 19.0 % (12.5-17.0)
[2024-12-12 06:54] LABS: EOSINOPHIL % 3.4 % (0.7-5.8)
[2024-12-12 06:56] LABS: ABSOLUTE IMMATURE GRANULOCYTES 0.06 x10^3/uL (0.0-0.031); BASOPHILS # 0.02 x10^3/uL (0.01-0.08); EOSINOPHILS # 0.26 x10^3/uL (0.04-0.36); IMMATURE PLATELET FRACTION # 4.00 x10^3/uL; MCHC 32.8 g/dl (32.2-35.5); MEAN CELL VOLUME 88.6 fl (79.4-94.8); MEAN PLT VOLUME 11.2 fl (9.4-12.3); MONOCYTE # 0.55 x10^3/uL (0.24-0.86); MONOCYTE % 7.2 % (4.7-12.5); RDW 18.6 % (12.5-17.0)
[2024-12-12 07:21] LABS: CO2 24.0 mmol/L (21-32); GLUCOSE,RANDOM 180.0 mg/dL (74-106)
[2024-12-12 07:24] LABS: CREATININE 1.7 mg/dL (0.55-1.3); SGOT/AST 16.0 U/L (15-37); SGPT/ALT 16.0 U/L (13-61)
[2024-12-12 07:25] LABS: TOT PROT 4.6 g/dl (6.4-8.2)
[2024-12-12 07:27] LABS: ALK PHOS 90.0 U/L (45-117)
[2024-12-12] MEDS: KCL 10 MEQ IVPB 10 MEQ/100 ML INFUS.BAG IVPB SCH (09:18)
[2024-12-12] MEDS: PHYTONADIONE 10 MG/1 ML AMP IVPB ONE (09:19)
[2024-12-12 13:11] LABS: INR 1.38 (0.83-1.09); PROTHROMBIN TIME (PATIENT) 15.0 SEC (9.7-13.0)
[2024-12-12] MEDS: KCL 20 MEQ PREMIX BAG 20 MEQ/100 ML INFUS.BAG IVPB SCH (13:38)
[2024-12-12] MEDS: ACETAMINOPHEN 1000 MG/100 ML BAG IVPB ONE (16:33)
[2024-12-13 06:58] LABS: ABSOLUTE IMMATURE GRANULOCYTES 0.04 x10^3/uL (0.0-0.031); BASOPHILS # 0.01 x10^3/uL (0.01-0.08); EOSINOPHIL % 2.7 % (0.7-5.8); EOSINOPHILS # 0.20 x10^3/uL (0.04-0.36); IMMATURE PLATELET FRACTION # 4.40 x10^3/uL; MCHC 32.1 g/dl (32.2-35.5); MEAN CELL VOLUME 88.7 fl (79.4-94.8); MEAN PLT VOLUME 11.7 fl (9.4-12.3); MONOCYTE # 0.46 x10^3/uL (0.24-0.86); MONOCYTE % 6.2 % (4.7-12.5); RDW 19.2 % (12.5-17.0)
[2024-12-13 07:11] LABS: INR 1.28 (0.83-1.09); PROTHROMBIN TIME (PATIENT) 14.0 SEC (9.7-13.0)
[2024-12-13 07:22] LABS: CO2 22.0 mmol/L (21-32); GLUCOSE,RANDOM 154.0 mg/dL (74-106)
[2024-12-13 07:24] LABS: SGOT/AST 26.0 U/L (15-37); SGPT/ALT 16.0 U/L (13-61)
[2024-12-13 07:25] LABS: CREATININE 1.6 mg/dL (0.55-1.3)
[2024-12-13 07:26] LABS: TOT PROT 5.4 g/dl (6.4-8.2)
[2024-12-13 07:27] LABS: ALK PHOS 104.0 U/L (45-117)
[2024-12-13 12:52] LABS: INR 1.26 (0.83-1.09); PROTHROMBIN TIME (PATIENT) 13.9 SEC (9.7-13.0)
[2024-12-14 08:41] LABS: ABSOLUTE IMMATURE GRANULOCYTES 0.02 x10^3/uL (0.0-0.031); BASOPHILS # 0.02 x10^3/uL (0.01-0.08); EOSINOPHIL % 1.8 % (0.7-5.8); EOSINOPHILS # 0.13 x10^3/uL (0.04-0.36); IMMATURE PLATELET FRACTION # 4.80 x10^3/uL; MCHC 31.6 g/dl (32.2-35.5); MEAN CELL VOLUME 89.8 fl (79.4-94.8); MEAN PLT VOLUME 10.6 fl (9.4-12.3); MONOCYTE # 0.42 x10^3/uL (0.24-0.86); MONOCYTE % 5.9 % (4.7-12.5); RDW 19.9 % (12.5-17.0)
[2024-12-14 08:42] LABS: INR 1.21 (0.83-1.09); PROTHROMBIN TIME (PATIENT) 13.2 SEC (9.7-13.0)
[2024-12-14 09:26] LABS: CO2 21.0 mmol/L (21-32); GLUCOSE,RANDOM 182.0 mg/dL (74-106)
[2024-12-14 09:29] LABS: CREATININE 1.5 mg/dL (0.55-1.3); SGPT/ALT 25.0 U/L (13-61)
[2024-12-14 09:30] LABS: SGOT/AST 46.0 U/L (15-37); TOT PROT 5.3 g/dl (6.4-8.2)
[2024-12-14 09:32] LABS: ALK PHOS 112.0 U/L (45-117)
[2024-12-14] MEDS: PANTOPRAZOLE SODIUM 40 MG VIAL IVPUSH SCH (11:45)
[2024-12-14] MEDS: INSULIN ASPART SLIDING SCALE (NOVOLOG) 1 VIAL SQ SCH (11:49)
[2024-12-14] MEDS: AMINO ACIDS 4.25%/D5W 1,000 ML IV SCH (11:52)
[2024-12-14] MEDS: POTASSIUM CHLORIDE 10 MEQ in AMINO ACIDS 4.25%/D5W 1,000 ML IV SCH (15:01)
[2024-12-14 16:08] LABS: IMMATURE PLATELET FRACTION # 6.40 x10^3/uL; MCHC 31.4 g/dl (32.2-35.5); MEAN CELL VOLUME 91.5 fl (79.4-94.8); MEAN PLT VOLUME 11.9 fl (9.4-12.3); RDW 19.9 % (12.5-17.0)
[2024-12-14 17:03] LABS: CO2 23.0 mmol/L (21-32); GLUCOSE,RANDOM 211.0 mg/dL (74-106)
[2024-12-14 17:06] LABS: CREATININE 1.6 mg/dL (0.55-1.3); SGOT/AST 49.0 U/L (15-37); SGPT/ALT 30.0 U/L (13-61)
[2024-12-14 17:07] LABS: TOT PROT 5.2 g/dl (6.4-8.2)
[2024-12-14 17:08] LABS: ALK PHOS 112.0 U/L (45-117)
[2024-12-14 17:28] LABS: URINE APPEARANCE TURBID; URINE BILIRUBIN NEGATIVE (NEGATIVE); URINE COLOR YELLOW; URINE GLUCOSE (UA) NEGATIVE (NEGATIVE); URINE KETONE NEGATIVE (NEGATIVE); URINE LEUK ESTERASE 4+ (NEGATIVE); URINE NITRITE NEGATIVE (NEGATIVE); URINE PROTEIN 100 (NEGATIVE); URINE UROBILINOGEN 0.2 mg/dL (0.2-1.0)
[2024-12-14 17:29] LABS: EPI CELLS 24.5 /uL (0-25.1); HYALINE CASTS 7.83 /uL (0-3.1); URINE BACTERIA 106.9 /uL (0-1359); URINE RBC 187.2 /uL (0-23.9); YEAST MODERATE (NEGATIVE)
[2024-12-15 07:42] LABS: EOSINOPHILS # 0.18 x10^3/uL (0.04-0.36)
[2024-12-15 07:44] LABS: ABSOLUTE IMMATURE GRANULOCYTES 0.04 x10^3/uL (0.0-0.031); BASOPHILS # 0.01 x10^3/uL (0.01-0.08); EOSINOPHIL % 2.4 % (0.7-5.8); IMMATURE PLATELET FRACTION # 7.10 x10^3/uL; MCHC 31.7 g/dl (32.2-35.5); MEAN CELL VOLUME 91.0 fl (79.4-94.8); MEAN PLT VOLUME 11.9 fl (9.4-12.3); MONOCYTE # 0.56 x10^3/uL (0.24-0.86); MONOCYTE % 7.5 % (4.7-12.5); RDW 20.3 % (12.5-17.0)
[2024-12-15 08:03] LABS: CO2 23.0 mmol/L (21-32)
[2024-12-15 08:04] LABS: GLUCOSE,RANDOM 150.0 mg/dL (74-106)
[2024-12-15 08:07] LABS: CREATININE 1.5 mg/dL (0.55-1.3); SGOT/AST 65.0 U/L (15-37); SGPT/ALT 33.0 U/L (13-61)
[2024-12-15 08:08] LABS: TOT PROT 5.1 g/dl (6.4-8.2)
[2024-12-15 08:09] LABS: ALK PHOS 116.0 U/L (45-117)
[2024-12-15 08:11] LABS: N-TERMINAL BNP 12553.8 pg/ml (5-450)
[2024-12-15] MEDS: FUROSEMIDE 40 MG/4 ML INJECTABLE VIAL IVPUSH ONE (09:48)
[2024-12-15] MEDS ORDERED: PIPERACILLIN/TAZOB 2.25 GM 2.25 GM in DEXTROSE 5%-WATER - 50 ML IVPB SCH (14:45)
[2024-12-15] MEDS: MIDODRINE HCL 2.5 MG TABLET PO SCH (16:02)
[2024-12-15] MEDS: PIPERACILLIN/TAZOB 2.25 GM 2.25 GM in DEXTROSE 5%-WATER - 50 ML IVPB SCH (16:03)
[2024-12-16] MEDS: MAGNESIUM SULF 50% (8.12 MEQ/2 ML-1 GM VIAL) IVPB ONE (01:26)
[2024-12-16 09:16] LABS: MCHC 31.4 g/dl (32.2-35.5); RDW 20.5 % (12.5-17.0)
[2024-12-16 09:18] LABS: IMMATURE PLATELET FRACTION # 6.80 x10^3/uL; MEAN CELL VOLUME 92.0 fl (79.4-94.8); MEAN PLT VOLUME 11.7 fl (9.4-12.3)
[2024-12-16 09:55] LABS: CO2 23.0 mmol/L (21-32); GLUCOSE,RANDOM 159.0 mg/dL (74-106)
[2024-12-16 09:59] LABS: CREATININE 1.7 mg/dL (0.55-1.3)
[2024-12-16] MEDS: PIPERACILLIN/TAZOB 4.5 GM 4.5 GM in DEXTROSE 5%-WATER 100 ML IVPB SCH (21:15)
[2024-12-17 09:39] LABS: ABSOLUTE IMMATURE GRANULOCYTES 0.05 x10^3/uL (0.0-0.031); BASOPHILS # 0.02 x10^3/uL (0.01-0.08); EOSINOPHIL % 1.3 % (0.7-5.8); EOSINOPHILS # 0.10 x10^3/uL (0.04-0.36); MCHC 31.2 g/dl (32.2-35.5); MEAN CELL VOLUME 91.5 fl (79.4-94.8); MEAN PLT VOLUME 10.9 fl (9.4-12.3); MONOCYTE # 0.92 x10^3/uL (0.24-0.86); MONOCYTE % 12.3 % (4.7-12.5); RDW 20.5 % (12.5-17.0)
[2024-12-17] MEDS: MINERAL OIL/PET HY-PHL TOPICAL OINTMENT 454 GM JAR TP SCH (09:45)
[2024-12-17 10:12] LABS: CO2 25.0 mmol/L (21-32); GLUCOSE,RANDOM 183.0 mg/dL (74-106); SGPT/ALT 26.0 U/L (13-61)
[2024-12-17 10:13] LABS: ALK PHOS 118.0 U/L (45-117); CREATININE 1.7 mg/dL (0.55-1.3); TOT PROT 5.2 g/dl (6.4-8.2)
[2024-12-17 10:15] LABS: IRON SERUM 110.0 ug/dL (50-175)
[2024-12-17 10:19] LABS: SGOT/AST 43.0 U/L (15-37)
[2024-12-17] MEDS: KCL 10 MEQ IVPB 10 MEQ/100 ML INFUS.BAG IVPB SCH (12:16)
[2024-12-18 09:46] LABS: MCHC 31.0 g/dl (32.2-35.5); MEAN CELL VOLUME 92.1 fl (79.4-94.8); MEAN PLT VOLUME 10.5 fl (9.4-12.3); RDW 20.6 % (12.5-17.0)
[2024-12-18 10:20] LABS: CO2 23.0 mmol/L (21-32); GLUCOSE,RANDOM 190.0 mg/dL (74-106)
[2024-12-18 10:23] LABS: CREATININE 1.6 mg/dL (0.55-1.3); SGOT/AST 26.0 U/L (15-37); SGPT/ALT 20.0 U/L (13-61)
[2024-12-18 10:24] LABS: TOT PROT 5.0 g/dl (6.4-8.2)
[2024-12-18 10:25] LABS: ALK PHOS 111.0 U/L (45-117)
[2024-12-18] MEDS: NAPH,MB-DB/K PH,MBDB POWDER PACKET PO SCH (13:19)
[2024-12-19] MEDS: ZINC SULFATE 220 MG CAPSULE (FP) PO SCH (11:21)
[2024-12-19] MEDS: MULTIVITAMINS (DAILY MVI) TABLET (FP) PO SCH (11:21)
[2024-12-20] MEDS: POTASSIUM CHLORIDE 10 MEQ in AMINO ACIDS 4.25%/D5W 1,000 ML IV SCH (05:10)
[2024-12-21 08:07] LABS: CO2 24.0 mmol/L (21-32); GLUCOSE,RANDOM 122.0 mg/dL (74-106); SGPT/ALT 14.0 U/L (13-61)
[2024-12-21 08:08] LABS: TOT PROT 5.4 g/dl (6.4-8.2)
[2024-12-21 08:10] LABS: ALK PHOS 127.0 U/L (45-117); CREATININE 1.7 mg/dL (0.55-1.3); SGOT/AST 18.0 U/L (15-37)
[2024-12-22 09:20] LABS: ABSOLUTE IMMATURE GRANULOCYTES 0.04 x10^3/uL (0.0-0.031); BASOPHILS # 0.02 x10^3/uL (0.01-0.08); EOSINOPHIL % 2.4 % (0.7-5.8); EOSINOPHILS # 0.17 x10^3/uL (0.04-0.36); MCHC 30.8 g/dl (32.2-35.5); MEAN CELL VOLUME 91.3 fl (79.4-94.8); MEAN PLT VOLUME 10.8 fl (9.4-12.3); MONOCYTE # 0.41 x10^3/uL (0.24-0.86); MONOCYTE % 5.7 % (4.7-12.5); RDW 19.9 % (12.5-17.0)
[2024-12-22 09:41] LABS: CO2 24.0 mmol/L (21-32); GLUCOSE,RANDOM 168.0 mg/dL (74-106)
[2024-12-22 09:43] LABS: SGPT/ALT 13.0 U/L (13-61)
[2024-12-22 09:44] LABS: CREATININE 1.8 mg/dL (0.55-1.3); SGOT/AST 13.0 U/L (15-37); TOT PROT 5.2 g/dl (6.4-8.2)
[2024-12-22 09:45] LABS: ALK PHOS 115.0 U/L (45-117)
[2024-12-22] MEDS: POTASSIUM CHLORIDE ORAL LIQUID 20 MEQ/15 ML PO ONE (14:43)
[2024-12-22] MEDS: POTASSIUM CHLORIDE 10 MEQ in AMINO ACIDS 4.25%/D5W 1,000 ML IV SCH (22:48)
[2024-12-23 07:31] LABS: ABSOLUTE IMMATURE GRANULOCYTES 0.03 x10^3/uL (0.0-0.031); BASOPHILS # 0.02 x10^3/uL (0.01-0.08); EOSINOPHIL % 2.6 % (0.7-5.8); EOSINOPHILS # 0.17 x10^3/uL (0.04-0.36); MCHC 31.4 g/dl (32.2-35.5); MEAN CELL VOLUME 88.8 fl (79.4-94.8); MEAN PLT VOLUME 11.5 fl (9.4-12.3); MONOCYTE # 0.56 x10^3/uL (0.24-0.86); MONOCYTE % 8.5 % (4.7-12.5); RDW 19.7 % (12.5-17.0)
[2024-12-23 08:10] LABS: CO2 21.0 mmol/L (21-32); GLUCOSE,RANDOM 171.0 mg/dL (74-106)
[2024-12-23 08:12] LABS: SGPT/ALT 12.0 U/L (13-61)
[2024-12-23 08:13] LABS: CREATININE 1.9 mg/dL (0.55-1.3); SGOT/AST 13.0 U/L (15-37)
[2024-12-23 08:14] LABS: TOT PROT 5.5 g/dl (6.4-8.2)
[2024-12-23 08:15] LABS: ALK PHOS 122.0 U/L (45-117)
[2024-12-23] MEDS: POTASSIUM CHLORIDE ORAL LIQUID 20 MEQ/15 ML PO ONE (11:20)
[2024-12-23] MEDS: KCL 10 MEQ IVPB 10 MEQ/100 ML INFUS.BAG IVPB SCH (16:49)
[2024-12-25 09:21] LABS: ABSOLUTE IMMATURE GRANULOCYTES 0.05 x10^3/uL (0.0-0.031); BASOPHILS # 0.02 x10^3/uL (0.01-0.08); EOSINOPHIL % 3.1 % (0.7-5.8); EOSINOPHILS # 0.25 x10^3/uL (0.04-0.36); MCHC 31.7 g/dl (32.2-35.5); MEAN CELL VOLUME 87.0 fl (79.4-94.8); MEAN PLT VOLUME 11.3 fl (9.4-12.3); MONOCYTE # 0.75 x10^3/uL (0.24-0.86); MONOCYTE % 9.2 % (4.7-12.5); RDW 19.9 % (12.5-17.0)
[2024-12-25 09:50] LABS: CO2 23.0 mmol/L (21-32); GLUCOSE,RANDOM 142.0 mg/dL (74-106)
[2024-12-25 09:53] LABS: CREATININE 1.8 mg/dL (0.55-1.3); SGOT/AST 15.0 U/L (15-37); SGPT/ALT 13.0 U/L (13-61)
[2024-12-25 09:54] LABS: TOT PROT 5.4 g/dl (6.4-8.2)
[2024-12-25 09:56] LABS: ALK PHOS 115.0 U/L (45-117)
[2024-12-25] MEDS: KCL 10 MEQ IVPB 10 MEQ/100 ML INFUS.BAG IVPB SCH (14:57)
[2024-12-25] MEDS: POTASSIUM CHLORIDE ORAL LIQUID 20 MEQ/15 ML PO ONE (14:57)
[2024-12-27 08:52] LABS: ABSOLUTE IMMATURE GRANULOCYTES 0.04 x10^3/uL (0.0-0.031); BASOPHILS # 0.03 x10^3/uL (0.01-0.08); EOSINOPHIL % 3.1 % (0.7-5.8); EOSINOPHILS # 0.22 x10^3/uL (0.04-0.36); MCHC 32.1 g/dl (32.2-35.5); MEAN CELL VOLUME 86.3 fl (79.4-94.8); MEAN PLT VOLUME 10.7 fl (9.4-12.3); MONOCYTE # 0.68 x10^3/uL (0.24-0.86); MONOCYTE % 9.5 % (4.7-12.5); RDW 19.9 % (12.5-17.0)
[2024-12-27 09:04] LABS: INR 1.18 (0.83-1.09); PROTHROMBIN TIME (PATIENT) 13.0 SEC (9.7-13.0)
[2024-12-27 09:48] LABS: CO2 23.0 mmol/L (21-32); GLUCOSE,RANDOM 117.0 mg/dL (74-106)
[2024-12-27 09:59] LABS: CREATININE 1.7 mg/dL (0.55-1.3); SGOT/AST 15.0 U/L (15-37); SGPT/ALT 11.0 U/L (13-61)
[2024-12-27 10:00] LABS: TOT PROT 5.6 g/dl (6.4-8.2)
[2024-12-27 10:02] LABS: ALK PHOS 118.0 U/L (45-117)
[2024-12-27] MEDS: KCL 10 MEQ IVPB 10 MEQ/100 ML INFUS.BAG IVPB SCH (15:39)
[2024-12-27] MEDS: AMINO ACIDS 4.25%/D5W 1,000 ML IV SCH (23:34)
[2024-12-28 07:22] LABS: CO2 23.0 mmol/L (21-32); GLUCOSE,RANDOM 120.0 mg/dL (74-106)
[2024-12-28 07:25] LABS: CREATININE 1.8 mg/dL (0.55-1.3); SGOT/AST 14.0 U/L (15-37); SGPT/ALT 10.0 U/L (13-61)
[2024-12-28 07:27] LABS: TOT PROT 5.5 g/dl (6.4-8.2)
[2024-12-28 07:28] LABS: ALK PHOS 116.0 U/L (45-117)
[2024-12-28] MEDS: MAGNESIUM 2GM/50ML STERILE WATER IVPB IVPB ONE (14:29)
[2024-12-28] MEDS: POTASSIUM PHOSPHATE 15 MM in DEXTROSE 5%-WATER - 250 ML IVPB ONE (15:41)
[2024-12-29] MEDS ORDERED: MIDAZOLAM HCL 2 MG/2 ML SINGLE DOSE VIAL ONE (10:53)
[2024-12-30 08:52] LABS: CO2 26.0 mmol/L (21-32); GLUCOSE,RANDOM 130.0 mg/dL (74-106)
[2024-12-30] MEDS ORDERED: LEVOTHYROXINE NA 25 MCG TABLET (FP) PO SCH (08:54)
[2024-12-30 08:55] LABS: CREATININE 1.6 mg/dL (0.55-1.3); SGOT/AST 15.0 U/L (15-37); SGPT/ALT 11.0 U/L (13-61)
[2024-12-30 08:57] LABS: TOT PROT 5.9 g/dl (6.4-8.2)
[2024-12-30 08:58] LABS: ALK PHOS 119.0 U/L (45-117)
[2024-12-30] MEDS ORDERED: LEVOTHYROXINE NA 100 MCG TABLET (FP) PO SCH (09:00)
[2024-12-30] MEDS: POTASSIUM CHLORIDE ORAL LIQUID 20 MEQ/15 ML PEG ONE (10:41)
[2024-12-30] MEDS: HYDROCORTISONE SOD SUCCINATE 100 MG/2 ML VIAL IVPUSH ONE (10:42)
[2024-12-30 11:31] LABS: IMMATURE PLATELET FRACTION # 10.20 x10^3/uL
[2024-12-30 11:48] LABS: ABSOLUTE IMMATURE GRANULOCYTES 0.05 x10^3/uL (0.0-0.031); BASOPHILS # 0.02 x10^3/uL (0.01-0.08); EOSINOPHIL % 4.3 % (0.7-5.8); EOSINOPHILS # 0.29 x10^3/uL (0.04-0.36); MCHC 31.5 g/dl (32.2-35.5); MEAN CELL VOLUME 88.5 fl (79.4-94.8); MEAN PLT VOLUME 10.9 fl (9.4-12.3); MONOCYTE # 0.69 x10^3/uL (0.24-0.86); MONOCYTE % 10.2 % (4.7-12.5); RDW 20.7 % (12.5-17.0)
[2024-12-30] MEDS: LEVOTHYROXINE SODIUM 100 MCG 5 ML VIAL IVPUSH ONE (17:15)
[2024-12-31] MEDS: LEVOTHYROXINE NA 100 MCG TABLET (FP) PO SCH (06:19)
[2024-12-31 07:00] LABS: MCHC 30.8 g/dl (32.2-35.5); MEAN CELL VOLUME 89.7 fl (79.4-94.8); MEAN PLT VOLUME 10.6 fl (9.4-12.3); RDW 20.5 % (12.5-17.0)
[2024-12-31 07:34] LABS: CO2 24.0 mmol/L (21-32)
[2024-12-31 07:35] LABS: GLUCOSE,RANDOM 302.0 mg/dL (74-106)
[2024-12-31 07:37] LABS: CREATININE 1.5 mg/dL (0.55-1.3)
[2024-12-31 07:38] LABS: SGOT/AST 16.0 U/L (15-37)
[2024-12-31 07:39] LABS: TOT PROT 5.7 g/dl (6.4-8.2)
[2024-12-31 07:40] LABS: ALK PHOS 144.0 U/L (45-117)
[2024-12-31 07:42] LABS: SGPT/ALT 12.0 U/L (13-61)
[2024-12-31 22:54] LABS: ARTERIAL BLD GAS O2 SATURATION 93.7 % (95-98); ARTERIAL BLOOD GAS BASE EXCESS -3.2 mmol/L (-2-2); ARTERIAL BLOOD GAS PCO2 47.60 mmHg (35-45); ARTERIAL BLOOD GAS PO2 74.9 mmHg (80-100); BG HCT 34.0 % (32.4-45.2); O2 CONTENT 1.54 % vol
[2024-12-31 22:55] LABS: ALLENS TEST POSITIVE; PT'S TEMP 94.5
[2024-12-31 23:39] LABS: ABSOLUTE IMMATURE GRANULOCYTES 0.08 x10^3/uL (0.0-0.031); BASOPHILS # 0.02 x10^3/uL (0.01-0.08); EOSINOPHIL % 1.6 % (0.7-5.8); EOSINOPHILS # 0.17 x10^3/uL (0.04-0.36); MCHC 31.2 g/dl (32.2-35.5); MEAN CELL VOLUME 91.0 fl (79.4-94.8); MEAN PLT VOLUME 10.4 fl (9.4-12.3); MONOCYTE # 0.89 x10^3/uL (0.24-0.86); MONOCYTE % 8.2 % (4.7-12.5); RDW 20.9 % (12.5-17.0)
[2024-12-31 23:55] LABS: CO2 26.0 mmol/L (21-32); GLUCOSE,RANDOM 191.0 mg/dL (74-106)
[2024-12-31 23:58] LABS: CREATININE 1.4 mg/dL (0.55-1.3)
[2025-01-01] MEDS: ACETAMINOPHEN 1000 MG/100 ML BAG IVPB ONE ×2 (00:21→20:01)
[2025-01-02] MEDS: COSYNTROPIN 0.25 MG VIAL IVPUSH ONE (06:23)
[2025-01-02] MEDS: FAMOTIDINE 20 MG/2.5 ML ORAL LIQUID PEG SCH (09:23)
[2025-01-02] MEDS: ZINC SULFATE 220 MG CAPSULE (FP) PO SCH (09:23)
[2025-01-02] MEDS: morphine CARPU-JECT 2 MG/1 ML DISP.SYRIN IVPUSH ONE (22:34)
[2025-01-02 22:57] LABS: ARTERIAL BLD GAS O2 SATURATION 92.8 % (95-98); ARTERIAL BLOOD GAS BASE EXCESS 0.9 mmol/L (-2-2); ARTERIAL BLOOD GAS PCO2 49.80 mmHg (35-45); ARTERIAL BLOOD GAS PO2 68.9 mmHg (80-100); BG HCT 29.0 % (32.4-45.2)
[2025-01-02 22:59] LABS: ALLENS TEST POSITIVE
[2025-01-02] MEDS ORDERED: ACETYLCYSTEINE 20% 200MG/ML 30 ML VIAL *FOR ORAL / INH USE ONLY NEB ONE (23:30)
[2025-01-02] MEDS: FUROSEMIDE 40 MG/4 ML INJECTABLE VIAL IVPUSH ONE (23:50)
[2025-01-03] MEDS: ACETYLCYSTEINE 20% 200MG/ML 4 ML VIAL *FOR ORAL / INH USE ONLY NEB ONE (00:03)
[2025-01-03] MEDS: ALBUTEROL SO4 0.083% IH SOL 2.5 MG/3 ML VIAL.NEB. NEB ONE (00:03)
[2025-01-03] MEDS: ACETAMINOPHEN 1000 MG/100 ML BAG IVPB PRN (00:45)
[2025-01-03 06:19] LABS: ARTERIAL BLD GAS O2 SATURATION 89.5 % (95-98); ARTERIAL BLOOD GAS BASE EXCESS 0.7 mmol/L (-2-2); ARTERIAL BLOOD GAS PCO2 47.50 mmHg (35-45); ARTERIAL BLOOD GAS PO2 59.1 mmHg (80-100); BG HCT 29.0 % (32.4-45.2)
[2025-01-03 06:20] LABS: ALLENS TEST POSITIVE
[2025-01-03 07:21] LABS: MCHC 30.0 g/dl (32.2-35.5); MEAN CELL VOLUME 91.8 fl (79.4-94.8); MEAN PLT VOLUME 10.3 fl (9.4-12.3); RDW 21.6 % (12.5-17.0)
[2025-01-03 07:51] LABS: CO2 30.0 mmol/L (21-32); GLUCOSE,RANDOM 236.0 mg/dL (74-106)
[2025-01-03 07:52] LABS: CO2 29.0 mmol/L (21-32); GLUCOSE,RANDOM 237.0 mg/dL (74-106)
[2025-01-03 07:54] LABS: CREATININE 1.6 mg/dL (0.55-1.3); SGOT/AST 14.0 U/L (15-37); SGPT/ALT 13.0 U/L (13-61)
[2025-01-03 07:55] LABS: SGOT/AST 14.0 U/L (15-37); SGPT/ALT 13.0 U/L (13-61)
[2025-01-03 07:56] LABS: CREATININE 1.6 mg/dL (0.55-1.3); TOT PROT 5.8 g/dl (6.4-8.2)
[2025-01-03 07:57] LABS: ALK PHOS 158.0 U/L (45-117); TOT PROT 5.8 g/dl (6.4-8.2)
[2025-01-03 07:58] LABS: ALK PHOS 160.0 U/L (45-117)
[2025-01-03] MEDS: FUROSEMIDE 40 MG/4 ML INJECTABLE VIAL IVPUSH SCH (09:44)
[2025-01-03] MEDS: ALBUMIN HUMAN 25% 12.5 GM/50 ML VIAL IV SCH (18:40)
[2025-01-04 08:01] LABS: ABSOLUTE IMMATURE GRANULOCYTES 0.15 x10^3/uL (0.0-0.031); BASOPHILS # 0.04 x10^3/uL (0.01-0.08); EOSINOPHIL % 0.4 % (0.7-5.8); EOSINOPHILS # 0.07 x10^3/uL (0.04-0.36); MCHC 30.5 g/dl (32.2-35.5); MEAN CELL VOLUME 89.0 fl (79.4-94.8); MEAN PLT VOLUME 10.9 fl (9.4-12.3); MONOCYTE # 1.38 x10^3/uL (0.24-0.86); MONOCYTE % 7.7 % (4.7-12.5); RDW 21.6 % (12.5-17.0)
[2025-01-04 08:30] LABS: CO2 30.0 mmol/L (21-32); GLUCOSE,RANDOM 257.0 mg/dL (74-106)
[2025-01-04 08:32] LABS: CREATININE 1.6 mg/dL (0.55-1.3); SGOT/AST 14.0 U/L (15-37); SGPT/ALT 12.0 U/L (13-61)
[2025-01-04 08:34] LABS: TOT PROT 6.1 g/dl (6.4-8.2)
[2025-01-04 08:35] LABS: ALK PHOS 176.0 U/L (45-117)
[2025-01-04] MEDS: ALBUTEROL SO4 0.083% IH SOL 2.5 MG/3 ML VIAL.NEB. NEB SCH ×2 (12:40→20:18)
[2025-01-04] MEDS: ACETYLCYSTEINE 20% 200MG/ML 4 ML VIAL *FOR ORAL / INH USE ONLY NEB SCH ×2 (12:40→20:18)
[2025-01-04] MEDS: MEROPENEM 1 GM in DEXTROSE 5%-WATER 100 ML IVPB SCH (13:22)
[2025-01-04] MEDS ORDERED: INSULIN ASPART SLIDING SCALE (NOVOLOG) 1 VIAL SQ ONE (19:20)
[2025-01-05] MEDS: ACETAMINOPHEN 1000 MG/100 ML BAG IVPB PRN (00:17)
[2025-01-05] MEDS: MEROPENEM 1 GM in DEXTROSE 5%-WATER 100 ML IVPB SCH (00:18)
[2025-01-05] MEDS: INSULIN ASPART SLIDING SCALE (NOVOLOG) 1 VIAL SQ SCH ×2 (00:19→17:02)
[2025-01-05] MEDS: FUROSEMIDE 40 MG/4 ML INJECTABLE VIAL IVPUSH SCH ×2 (06:23→18:40)
[2025-01-05] MEDS: LEVOTHYROXINE NA 100 MCG TABLET (FP) PO SCH (06:23)
[2025-01-05 06:33] LABS: ABSOLUTE IMMATURE GRANULOCYTES 0.18 x10^3/uL (0.0-0.031); BASOPHILS # 0.05 x10^3/uL (0.01-0.08); EOSINOPHIL % 0.7 % (0.7-5.8); EOSINOPHILS # 0.13 x10^3/uL (0.04-0.36); MCHC 29.7 g/dl (32.2-35.5); MEAN CELL VOLUME 90.8 fl (79.4-94.8); MEAN PLT VOLUME 11.0 fl (9.4-12.3); MONOCYTE # 1.94 x10^3/uL (0.24-0.86); MONOCYTE % 10.4 % (4.7-12.5); RDW 21.2 % (12.5-17.0)
[2025-01-05 07:16] LABS: CO2 31.0 mmol/L (21-32); GLUCOSE,RANDOM 204.0 mg/dL (74-106)
[2025-01-05 07:19] LABS: CREATININE 1.6 mg/dL (0.55-1.3); SGOT/AST 15.0 U/L (15-37); SGPT/ALT 13.0 U/L (13-61)
[2025-01-05 07:21] LABS: TOT PROT 5.9 g/dl (6.4-8.2)
[2025-01-05 07:22] LABS: ALK PHOS 152.0 U/L (45-117)
[2025-01-05] MEDS: FAMOTIDINE 20 MG/2.5 ML ORAL LIQUID PEG SCH (10:09)
[2025-01-05] MEDS: NAPH,MB-DB/K PH,MBDB POWDER PACKET PO SCH (10:10)
[2025-01-05] MEDS: MIDODRINE HCL 2.5 MG TABLET PO SCH (10:10)
[2025-01-05] MEDS: MINERAL OIL/PET HY-PHL TOPICAL OINTMENT 454 GM JAR TP SCH (10:10)
[2025-01-05] MEDS: ZINC SULFATE 220 MG CAPSULE (FP) PO SCH (10:10)
[2025-01-05] MEDS: MULTIVITAMINS (DAILY MVI) TABLET (FP) PO SCH (10:11)
[2025-01-05] MEDS ORDERED: RAPID SEQUENCE INTUBATION KIT NR ONE (11:32)
[2025-01-05] MEDS ORDERED: MIDAZOLAM HCL 2 MG/2 ML SINGLE DOSE VIAL ONE (11:34)
[2025-01-05] MEDS ORDERED: PROPOFOL 1,000,000 MCG/100 ML VIAL ONE (11:37)
[2025-01-05] MEDS ORDERED: NOREPINEPHRINE BITARTRATE 4 MG/4 ML ML IV ONE ×2 (11:37→12:37)
[2025-01-05] MEDS: ROCURONIUM BROMIDE 50 MG/5 ML VIAL IV ONE (11:45)
[2025-01-05] MEDS: MIDAZOLAM HCL 2 MG/2 ML SINGLE DOSE VIAL IVPUSH ONE (11:45)
[2025-01-05] MEDS: PROPOFOL 200 MG/20 ML VIAL IVPUSH ONE (11:45)
[2025-01-05] MEDS: NOREPINEPHRINE BITARTRATE 4,000 MCG in SODIUM CHLORIDE 496 ML IV SCH (12:00)
[2025-01-05] MEDS: LACTATED RINGERS SOLUTION 1000 ML INFUS.BAG IV ONE ×3 (12:15→20:39)
[2025-01-05] MEDS: PROPOFOL 1,000,000 MCG/100 ML VIAL IVPB SCH ×2 (12:41→14:00)
[2025-01-05] MEDS ORDERED: NOREPINEPHRINE BITARTRATE 4,000 MCG in DEXTROSE 5%-WATER - 496 ML IV SCH (13:15)
[2025-01-05 14:32] LABS: ARTERIAL BLD GAS O2 SATURATION 99.6 % (95-98); ARTERIAL BLOOD GAS BASE EXCESS 0.1 mmol/L (-2-2); ARTERIAL BLOOD GAS PCO2 52.90 mmHg (35-45); ARTERIAL BLOOD GAS PO2 292.0 mmHg (80-100); BG HCT 40.0 % (32.4-45.2)
[2025-01-05 14:33] LABS: ALLENS TEST POSITIVE; VENT MODE A/C
[2025-01-05 14:34] LABS: VENT RATE 14
[2025-01-05] MEDS ORDERED: LEPTOSPERMUM HONEY (MEDIHONEY) TP PRN (16:04)
[2025-01-05] MEDS ORDERED: LEPTOSPERMUM HONEY (MEDIHONEY) TP SCH (16:15)
[2025-01-05] MEDS: VANCOMYCIN/WATER FOR INJ (PEG) 1,000 MG/200 ML BAG IVPB ONE (16:40)
[2025-01-05] MEDS: ALBUTEROL SO4 0.083% IH SOL 2.5 MG/3 ML VIAL.NEB. NEB SCH (16:52)
[2025-01-05] MEDS: ACETYLCYSTEINE 20% 200MG/ML 4 ML VIAL *FOR ORAL / INH USE ONLY NEB SCH (16:52)
[2025-01-05] MEDS ORDERED: MIDODRINE HCL 2.5 MG TABLET GT SCH (18:00)
[2025-01-05] MEDS: morphine CARPU-JECT 2 MG/1 ML DISP.SYRIN IVPUSH ONE (18:39)
[2025-01-05] MEDS: NOREPINEPHRINE 0.9 % NACL 8 MG/250 ML BAG IVPB SCH ×2 (19:59→20:40)
[2025-01-05] MEDS: CHLORHEXIDINE GLUCONATE 4% CLEANSER FOR DECOLONIZATION TP SCH (21:05)
[2025-01-05] MEDS: MIDODRINE HCL 2.5 MG TABLET GT SCH (21:06)
[2025-01-05] MEDS: MUPIROCIN 2% TOPICAL OINTMENT FOR DECOLONIZATION NS SCH (22:36)
[2025-01-06] MEDS: MEROPENEM 1 GM in DEXTROSE 5%-WATER 100 ML IVPB SCH (01:09)
[2025-01-06] MEDS: LEVOTHYROXINE NA 100 MCG TABLET (FP) GT SCH (06:01)
[2025-01-06 06:43] LABS: ABSOLUTE IMMATURE GRANULOCYTES 0.14 x10^3/uL (0.0-0.031); BASOPHILS # 0.04 x10^3/uL (0.01-0.08); EOSINOPHIL % 1.6 % (0.7-5.8); EOSINOPHILS # 0.29 x10^3/uL (0.04-0.36); MCHC 30.4 g/dl (32.2-35.5); MEAN CELL VOLUME 89.1 fl (79.4-94.8); MEAN PLT VOLUME 11.3 fl (9.4-12.3); MONOCYTE # 1.49 x10^3/uL (0.24-0.86); MONOCYTE % 8.2 % (4.7-12.5); RDW 21.4 % (12.5-17.0)
[2025-01-06 07:07] LABS: CO2 31.0 mmol/L (21-32); GLUCOSE,RANDOM 205.0 mg/dL (74-106)
[2025-01-06 07:10] LABS: CREATININE 1.7 mg/dL (0.55-1.3); SGOT/AST 15.0 U/L (15-37); SGPT/ALT 11.0 U/L (13-61)
[2025-01-06 07:12] LABS: TOT PROT 5.6 g/dl (6.4-8.2)
[2025-01-06 07:13] LABS: ALK PHOS 147.0 U/L (45-117)
[2025-01-06] MEDS: MAGNESIUM SULF 50% (8.12 MEQ/2 ML-1 GM VIAL) IVPB ONE (09:10)
[2025-01-06] MEDS: KCL 20 MEQ PREMIX BAG 20 MEQ/100 ML INFUS.BAG IVPB SCH (09:25)
[2025-01-06] MEDS: ZINC SULFATE 220 MG CAPSULE (FP) GT SCH (10:32)
[2025-01-06] MEDS: NAPH,MB-DB/K PH,MBDB POWDER PACKET GT SCH (10:32)
[2025-01-06] MEDS: MULTIVIT-MINERALS ORAL LIQUID GT SCH (10:39)
[2025-01-06] MEDS: FAMOTIDINE 20 MG/2.5 ML ORAL LIQUID PEG SCH (10:39)
[2025-01-06] MEDS: MINERAL OIL/PET HY-PHL TOPICAL OINTMENT 454 GM JAR TP SCH (10:42)
[2025-01-06 11:36] LABS: ARTERIAL BLD GAS O2 SATURATION 97.9 % (95-98); ARTERIAL BLOOD GAS BASE EXCESS 3.4 mmol/L (-2-2); ARTERIAL BLOOD GAS PCO2 40.40 mmHg (35-45); ARTERIAL BLOOD GAS PO2 102.6 mmHg (80-100); BG HCT 33.0 % (32.4-45.2)
[2025-01-06 11:57] LABS: ALLENS TEST POSITIVE; VENT MODE A/C
[2025-01-06 11:58] LABS: VENT RATE 14
[2025-01-07 06:31] LABS: MCHC 31.1 g/dl (32.2-35.5); MEAN CELL VOLUME 87.6 fl (79.4-94.8); MEAN PLT VOLUME 10.8 fl (9.4-12.3); RDW 20.7 % (12.5-17.0)
[2025-01-07 07:14] LABS: CO2 31.0 mmol/L (21-32); GLUCOSE,RANDOM 239.0 mg/dL (74-106)
[2025-01-07 07:16] LABS: SGPT/ALT 15.0 U/L (13-61)
[2025-01-07 07:17] LABS: CREATININE 1.6 mg/dL (0.55-1.3); SGOT/AST 25.0 U/L (15-37)
[2025-01-07 07:18] LABS: TOT PROT 5.4 g/dl (6.4-8.2)
[2025-01-07 07:22] LABS: ALK PHOS 202.0 U/L (45-117)
[2025-01-07] MEDS: MAGNESIUM SULFATE IN WATER 2 GM/50 ML IVPB IVPB ONE (10:35)
[2025-01-07] MEDS ORDERED: INSULIN ASPART SLIDING SCALE (NOVOLOG) 1 VIAL SQ ONE (11:06)
[2025-01-07] MEDS: MIDODRINE HCL 2.5 MG TABLET GT SCH (15:04)
[2025-01-08 06:22] LABS: ABSOLUTE IMMATURE GRANULOCYTES 0.33 x10^3/uL (0.0-0.031); BASOPHILS # 0.06 x10^3/uL (0.01-0.08); EOSINOPHIL % 3.0 % (0.7-5.8); EOSINOPHILS # 0.59 x10^3/uL (0.04-0.36); MCHC 31.0 g/dl (32.2-35.5); MEAN CELL VOLUME 89.1 fl (79.4-94.8); MEAN PLT VOLUME 11.3 fl (9.4-12.3); MONOCYTE # 1.26 x10^3/uL (0.24-0.86); MONOCYTE % 6.3 % (4.7-12.5); RDW 20.9 % (12.5-17.0)
[2025-01-08 06:47] LABS: CO2 34.0 mmol/L (21-32)
[2025-01-08 06:48] LABS: GLUCOSE,RANDOM 226.0 mg/dL (74-106)
[2025-01-08 06:50] LABS: CREATININE 1.5 mg/dL (0.55-1.3); SGOT/AST 35.0 U/L (15-37); SGPT/ALT 20.0 U/L (13-61)
[2025-01-08 06:52] LABS: TOT PROT 5.4 g/dl (6.4-8.2)
[2025-01-08] MEDS: VANCOMYCIN ORAL SOLUTION 125 MG/2.5 ML GT SCH (07:04)
[2025-01-08 07:13] LABS: ALK PHOS 263.0 U/L (45-117)
[2025-01-08] MEDS: MAGNESIUM SULFATE IN WATER 2 GM/50 ML IVPB IVPB ONE (09:03)
[2025-01-08 11:48] LABS: EPI CELLS 1 /uL (0-25.1); HYALINE CASTS 2 /uL (0-3.1); URINE APPEARANCE CLOUDY; URINE BACTERIA 39 /uL (0-1359); URINE BILIRUBIN NEGATIVE (NEGATIVE); URINE COLOR YELLOW; URINE GLUCOSE (UA) NEGATIVE (NEGATIVE); URINE KETONE NEGATIVE (NEGATIVE); URINE LEUK ESTERASE 3+ (NEGATIVE); URINE NITRITE NEGATIVE (NEGATIVE); URINE PROTEIN NEGATIVE (NEGATIVE); URINE RBC 11 /uL (0-23.9); URINE UROBILINOGEN 0.2 mg/dL (0.2-1.0); URINE WBC 693 /uL (0-25.8)
[2025-01-08 12:36] LABS: YEAST PRESENT (NEGATIVE)
[2025-01-08] MEDS: MIDODRINE HCL 5 MG TABLET GT SCH (13:25)
[2025-01-08] MEDS: ACETAMINOPHEN 1000 MG/100 ML BAG IVPB PRN (21:03)
[2025-01-09] MEDS: METOLAZONE 2.5 MG TABLET (FP) NGT ONE (03:57)
[2025-01-09 06:52] LABS: MCHC 30.8 g/dl (32.2-35.5); MEAN CELL VOLUME 89.4 fl (79.4-94.8); MEAN PLT VOLUME 11.9 fl (9.4-12.3); RDW 21.1 % (12.5-17.0)
[2025-01-09 06:56] LABS: CO2 35.0 mmol/L (21-32)
[2025-01-09 06:57] LABS: GLUCOSE,RANDOM 227.0 mg/dL (74-106)
[2025-01-09 06:59] LABS: SGOT/AST 50.0 U/L (15-37); SGPT/ALT 26.0 U/L (13-61)
[2025-01-09 07:01] LABS: TOT PROT 5.8 g/dl (6.4-8.2)
[2025-01-09 07:02] LABS: ALK PHOS 283.0 U/L (45-117)
[2025-01-09 07:12] LABS: CREATININE 1.5 mg/dL (0.55-1.3)
[2025-01-09] MEDS: VANCOMYCIN/WATER FOR INJ (PEG) 1,000 MG/200 ML BAG IVPB ONE (19:50)
[2025-01-10 08:36] LABS: MCHC 30.7 g/dl (32.2-35.5); MEAN CELL VOLUME 90.5 fl (79.4-94.8); MEAN PLT VOLUME 11.8 fl (9.4-12.3); RDW 21.2 % (12.5-17.0)
[2025-01-10 10:03] LABS: GLUCOSE,RANDOM 214.0 mg/dL (74-106); TOT PROT 5.4 g/dl (6.4-8.2)
[2025-01-10 10:04] LABS: CO2 33.0 mmol/L (21-32)
[2025-01-10 10:05] LABS: ALK PHOS 252.0 U/L (40-150)
[2025-01-10 10:08] LABS: SGOT/AST 55.0 U/L (5-34); SGPT/ALT 20.0 U/L (0-55)
[2025-01-10 10:09] LABS: CREATININE 1.2 mg/dL (0.55-1.3)
[2025-01-11 06:42] LABS: MCHC 30.9 g/dl (32.2-35.5); MEAN CELL VOLUME 90.1 fl (79.4-94.8); MEAN PLT VOLUME 11.6 fl (9.4-12.3); RDW 20.8 % (12.5-17.0)
[2025-01-11 07:28] LABS: GLUCOSE,RANDOM 180.0 mg/dL (74-106); TOT PROT 5.4 g/dl (6.4-8.2)
[2025-01-11 07:29] LABS: CO2 36.0 mmol/L (21-32)
[2025-01-11 07:34] LABS: CREATININE 1.32 mg/dL (0.55-1.3); SGOT/AST 55.0 U/L (5-34)
[2025-01-11 08:15] LABS: ALK PHOS 213.0 U/L (40-150); SGPT/ALT 19.0 U/L (0-55)
[2025-01-11] MEDS: FENTANYL NS IVPB 500 MCG/100 ML BAG IVPB SCH (09:09)
[2025-01-11] MEDS: VANCOMYCIN/WATER FOR INJ (PEG) 1,000 MG/200 ML BAG IVPB SCH (14:46)
[2025-01-11 16:17] LABS: INR 1.33 (0.83-1.09); PROTHROMBIN TIME (PATIENT) 14.5 SEC (9.7-13.0)
[2025-01-11 16:20] LABS: ACTIVATED PTT 34.8 SECONDS (25.2-36.5)
[2025-01-11] MEDS ORDERED: INSULIN ASPART SLIDING SCALE (NOVOLOG) 1 VIAL SQ ONE (18:29)
[2025-01-12 06:36] LABS: MCHC 30.1 g/dl (32.2-35.5); MEAN CELL VOLUME 89.6 fl (79.4-94.8); MEAN PLT VOLUME 10.8 fl (9.4-12.3); RDW 20.3 % (12.5-17.0)
[2025-01-12 07:09] LABS: GLUCOSE,RANDOM 190.0 mg/dL (74-106)
[2025-01-12 07:10] LABS: CO2 36.0 mmol/L (21-32); TOT PROT 5.2 g/dl (6.4-8.2)
[2025-01-12 07:12] LABS: ALK PHOS 209.0 U/L (40-150)
[2025-01-12 07:15] LABS: CREATININE 1.35 mg/dL (0.55-1.3); SGOT/AST 53.0 U/L (5-34); SGPT/ALT 17.0 U/L (0-55)
[2025-01-12] MEDS ORDERED: ROCURONIUM BROMIDE 50 MG/5 ML VIAL IVPUSH PRN (11:34)
[2025-01-12] MEDS ORDERED: PROPOFOL 200 MG/20 ML VIAL IVPUSH ONE ×2 (13:00)
[2025-01-12] MEDS: PROPOFOL 200 MG/20 ML VIAL IVPUSH ONE (14:40)
[2025-01-12] MEDS: MIDAZOLAM HCL 5 MG/1 ML Single Dose Vial IVPUSH ONE (14:42)
[2025-01-12] MEDS: ROCURONIUM BROMIDE 50 MG/5 ML VIAL IVPUSH ONE ×2 (14:43→14:47)
[2025-01-12] MEDS: MIDODRINE HCL 5 MG TABLET GT SCH (22:06)
[2025-01-13 07:03] LABS: ABSOLUTE IMMATURE GRANULOCYTES 0.20 x10^3/uL (0.0-0.031); BASOPHILS # 0.03 x10^3/uL (0.01-0.08); EOSINOPHIL % 3.0 % (0.7-5.8); EOSINOPHILS # 0.46 x10^3/uL (0.04-0.36); MCHC 30.4 g/dl (32.2-35.5); MEAN CELL VOLUME 89.8 fl (79.4-94.8); MEAN PLT VOLUME 10.9 fl (9.4-12.3); MONOCYTE # 1.80 x10^3/uL (0.24-0.86); MONOCYTE % 11.7 % (4.7-12.5); RDW 20.1 % (12.5-17.0)
[2025-01-13 07:39] LABS: GLUCOSE,RANDOM 192.0 mg/dL (74-106)
[2025-01-13 07:40] LABS: TOT PROT 5.8 g/dl (6.4-8.2)
[2025-01-13 07:45] LABS: SGOT/AST 43.0 U/L (5-34); SGPT/ALT 13.0 U/L (0-55)
[2025-01-13 07:46] LABS: CREATININE 1.44 mg/dL (0.55-1.3)
[2025-01-13 08:14] LABS: ALK PHOS 186.0 U/L (40-150); CO2 34.0 mmol/L (21-32)
[2025-01-13] MEDS: SEVELAMER CARBONATE 0.8 GM POWDER PACKET NGT ONE (11:21)
[2025-01-13 14:54] LABS: ARTERIAL BLD GAS O2 SATURATION 98.2 % (95-98); ARTERIAL BLOOD GAS BASE EXCESS 11.2 mmol/L (-2-2); ARTERIAL BLOOD GAS PCO2 45.50 mmHg (35-45); ARTERIAL BLOOD GAS PO2 105.8 mmHg (80-100); BG HCT 31.0 % (32.4-45.2)
[2025-01-13 14:55] LABS: ALLENS TEST POSITIVE; VENT MODE A/C; VENT RATE 14
[2025-01-13] MEDS ORDERED: NOREPINEPHRINE BITARTRATE 4 MG/4 ML ML IV ONE (20:42)
[2025-01-13] MEDS: NOREPINEPHRINE BITARTRATE 4,000 MCG in DEXTROSE 5%-WATER - 496 ML IV SCH (20:52)
[2025-01-14 06:53] LABS: GLUCOSE,RANDOM 230.0 mg/dL (74-106); TOT PROT 6.0 g/dl (6.4-8.2)
[2025-01-14 06:55] LABS: CO2 37.0 mmol/L (21-32)
[2025-01-14 06:57] LABS: ABSOLUTE IMMATURE GRANULOCYTES 0.13 x10^3/uL (0.0-0.031); BASOPHILS # 0.04 x10^3/uL (0.01-0.08); EOSINOPHIL % 3.3 % (0.7-5.8); EOSINOPHILS # 0.46 x10^3/uL (0.04-0.36); MCHC 30.3 g/dl (32.2-35.5); MEAN CELL VOLUME 90.2 fl (79.4-94.8); MEAN PLT VOLUME 11.6 fl (9.4-12.3); MONOCYTE # 1.59 x10^3/uL (0.24-0.86); MONOCYTE % 11.4 % (4.7-12.5); RDW 20.1 % (12.5-17.0)
[2025-01-14 06:59] LABS: CREATININE 1.35 mg/dL (0.55-1.3); SGOT/AST 41.0 U/L (5-34); SGPT/ALT 17.0 U/L (0-55)
[2025-01-14 07:08] LABS: ALK PHOS 221.0 U/L (40-150)
[2025-01-15 07:06] LABS: ABSOLUTE IMMATURE GRANULOCYTES 0.15 x10^3/uL (0.0-0.031); BASOPHILS # 0.03 x10^3/uL (0.01-0.08); EOSINOPHIL % 4.1 % (0.7-5.8); EOSINOPHILS # 0.51 x10^3/uL (0.04-0.36); MCHC 30.4 g/dl (32.2-35.5); MEAN CELL VOLUME 90.6 fl (79.4-94.8); MEAN PLT VOLUME 11.5 fl (9.4-12.3); MONOCYTE # 1.22 x10^3/uL (0.24-0.86); MONOCYTE % 9.9 % (4.7-12.5); RDW 19.7 % (12.5-17.0)
[2025-01-15 07:31] LABS: GLUCOSE,RANDOM 262.0 mg/dL (74-106)
[2025-01-15 07:32] LABS: TOT PROT 6.1 g/dl (6.4-8.2)
[2025-01-15 07:33] LABS: CO2 34.0 mmol/L (21-32)
[2025-01-15 07:37] LABS: CREATININE 1.2 mg/dL (0.55-1.3); SGOT/AST 42.0 U/L (5-34); SGPT/ALT 16.0 U/L (0-55)
[2025-01-15 07:45] LABS: ALK PHOS 261.0 U/L (40-150)
[2025-01-15] MEDS: POTASSIUM CHLORIDE ORAL LIQUID 20 MEQ/15 ML PO ONE (09:50)
[2025-01-15] MEDS: MAGNESIUM 1GM/D5W - 1 GM/100 ML IVPB IVPB ONE (09:55)
[2025-01-15] MEDS: FUROSEMIDE 40 MG/4 ML INJECTABLE VIAL IVPUSH SCH (10:24)
[2025-01-16 07:05] LABS: ABSOLUTE IMMATURE GRANULOCYTES 0.13 x10^3/uL (0.0-0.031); BASOPHILS # 0.03 x10^3/uL (0.01-0.08); EOSINOPHIL % 3.3 % (0.7-5.8); EOSINOPHILS # 0.43 x10^3/uL (0.04-0.36); MCHC 30.1 g/dl (32.2-35.5); MEAN CELL VOLUME 90.9 fl (79.4-94.8); MEAN PLT VOLUME 11.1 fl (9.4-12.3); MONOCYTE # 0.93 x10^3/uL (0.24-0.86); MONOCYTE % 7.1 % (4.7-12.5); RDW 19.6 % (12.5-17.0)
[2025-01-16 07:14] LABS: GLUCOSE,RANDOM 265.0 mg/dL (74-106)
[2025-01-16 07:15] LABS: TOT PROT 6.2 g/dl (6.4-8.2)
[2025-01-16 07:18] LABS: ALK PHOS 235.0 U/L (40-150); CO2 37.0 mmol/L (21-32)
[2025-01-16 07:20] LABS: CREATININE 1.12 mg/dL (0.55-1.3); SGOT/AST 44.0 U/L (5-34); SGPT/ALT 22.0 U/L (0-55)
[2025-01-16 16:39] VITALS: BP 105/68; PULSE 88; RESP 17; TEMP 97.1
[2025-01-16] MEDS: MIDODRINE HCL 5 MG TABLET GT SCH (16:40)
[2025-01-16] MEDS ORDERED: INSULIN GLARGINE (LANTUS) 100 UNITS/ML UNITS SQ SCH (22:00)
== END 2025-01-16 16:50 | DRG 4 ==
LOC: JER 02:23 → JERBED 06:56 → JICU 10:30 → J4S 12-13 20:33 → J2W 01-04 16:52 → JICU 01-05 14:11
PROVIDERS: ADMIT Internal Medicine Pulmonary Disease; ATTEND Family Medicine
PROC: 30233N1 Transfusion of Nonautologous Red Blood Cells into Peripheral Vein, Percutaneous Approach (ICD-10-PCS; 2024-12-08)
PROC: 0DH63UZ Insertion of Feeding Device into Stomach, Percutaneous Approach (ICD-10-PCS; 2024-12-29)
PROC: BD12YZZ Fluoroscopy of Stomach using Other Contrast (ICD-10-PCS; 2024-12-29)
PROC: 5A1955Z Respiratory Ventilation, Greater than 96 Consecutive Hours (ICD-10-PCS; 2025-01-05)
PROC: 0BH17EZ Insertion of Endotracheal Airway into Trachea, Via Natural or Artificial Opening (ICD-10-PCS; 2025-01-05)
PROC: 05HM33Z Insertion of Infusion Device into Right Internal Jugular Vein, Percutaneous Approach (ICD-10-PCS; 2025-01-05)
PROC: B543ZZA Ultrasonography of Right Jugular Veins, Guidance (ICD-10-PCS; 2025-01-05)
PROC: 0B110F4 Bypass Trachea to Cutaneous with Tracheostomy Device, Open Approach (ICD-10-PCS; principal; 2025-01-12)
PROC: 0BJ08ZZ Inspection of Tracheobronchial Tree, Via Natural or Artificial Opening Endoscopic (ICD-10-PCS; 2025-01-12)
DX: A41.9 Sepsis, unspecified organism (principal); I50.23 Acute on chronic systolic (congestive) heart failure; J18.9 Pneumonia, unspecified organism; R65.21 Severe sepsis with septic shock; J96.02 Acute respiratory failure with hypercapnia; I48.20 Chronic atrial fibrillation, unspecified; I42.9 Cardiomyopathy, unspecified; L97.929 Non-pressure chronic ulcer of unspecified part of left lower leg with unspecified severity; D68.9 Coagulation defect, unspecified; D62 Acute posthemorrhagic anemia; E46 Unspecified protein-calorie malnutrition; I47.20 Ventricular tachycardia, unspecified; N39.0 Urinary tract infection, site not specified; E87.20 Acidosis, unspecified; I13.0 Hypertensive heart and chronic kidney disease with heart failure and stage 1 through stage 4 chronic kidney disease, or unspecified chronic kidney disease; L97.909 Non-pressure chronic ulcer of unspecified part of unspecified lower leg with unspecified severity; E87.0 Hyperosmolality and hypernatremia; K92.2 Gastrointestinal hemorrhage, unspecified; J98.11 Atelectasis; E11.9 Type 2 diabetes mellitus without complications; I11.0 Hypertensive heart disease with heart failure; I83.029 Varicose veins of left lower extremity with ulcer of unspecified site; E87.70 Fluid overload, unspecified; L89.150 Pressure ulcer of sacral region, unstageable; Z78.9 Other specified health status; R62.7 Adult failure to thrive; N18.9 Chronic kidney disease, unspecified; E03.9 Hypothyroidism, unspecified; E11.622 Type 2 diabetes mellitus with other skin ulcer; D69.6 Thrombocytopenia, unspecified; E83.42 Hypomagnesemia; E87.6 Hypokalemia; R33.9 Retention of urine, unspecified
CPT/HCPCS: 31500; 36415; 36430; 36600; 49440; 70450-TC; 71045-TC-FY; 71046-TC-FY; 73030-TC-RT-FY; 80048; 80053; 81003; 82533; 82728; 82803; 82962; 83540; 83550; 83605; 83690; 83735; 83880; 84100; 84436; 84443; 84478; 84484; 85025; 85027; 85610; 85730; 86803; 86850; 86900; 86901; 86922; 87040; 87070; 87077; 87086; 87205; 87389; 87481; 87637-QW; 93005; 93010; 94002; 94640; 94660; 99291; E0186; G0480; J0834; P9038; P9047; P9058